=== PATIENT | male | born 1960 | race Caucasian/White ===

== ENCOUNTER 2017-08-03 13:14 | Outpatient (CLI) | payer MEDICARE, MEDICAID ==
--- OUTSIDE RECORDS SUMMARY | 2017-08-03 13:19 | XMS | Clinical Summary ---
:[address] [facility] Address [address] [place] [address] Phone Care Team Providers Name Role Phone , Primary Care Provider Unavailable Allergies Not on File Current Medications Not on file Active Problems Not on file Social History Tobacco Use Types Packs/Day Years Used Date Never Assessed Sex Assigned at Date Recorded Not on file Last Filed Vital Signs Not on file Plan of Treatment Not on file Results Not on filefrom Last 3 Months
--- NOTE | 2017-08-03 13:33 | RAD ---
TWO VIEWS CHEST: Date: 08-03-17 Comparison: 07-08-17 History: Dyspnea. FINDINGS: PA and lateral chest demonstrates hyperaeration and airtrapping compatible with changes of COPD. The re is some ectasia of the aorta. Old healed fractures seen in the left 8th rib anteriorly. IMPRESSION: No acute intrathoracic abnormalities seen. POS: [facility]
== END 2017-08-03 13:15 | disposition home or self-care (01) ==
LOC: RAD 13:14
PROVIDERS: ATTEND Internal Medicine Pulmonary Disease
DX: R06.00 Dyspnea, unspecified (principal)
CPT/HCPCS: 71020

== ENCOUNTER 2018-01-27 06:23 | Emergency (ER) | payer MEDICARE, MEDICAID ==
[2018-01-27] MEDS ORDERED: Adacel (T-DAP) 0.5 ML VIAL ONE (06:44)
[2018-01-27] MEDS ORDERED: Bacitracin Zinc 1 Packet ONE (06:44)
== END 2018-01-27 07:35 | disposition home or self-care (01) ==
LOC: ERS 06:23
DX: S51.811A Laceration without foreign body of right forearm, initial encounter (principal); I10 Essential (primary) hypertension; I69.359 Hemiplegia and hemiparesis following cerebral infarction affecting unspecified side; F31.9 Bipolar disorder, unspecified; Z99.2 Dependence on renal dialysis; Z87.891 Personal history of nicotine dependence; Z79.82 Long term (current) use of aspirin; Z79.891 Long term (current) use of opiate analgesic; Z79.899 Other long term (current) drug therapy; W06.XXXA Fall from bed, initial encounter
CPT/HCPCS: 90471; 90715; 99284

== ENCOUNTER 2018-08-30 06:49 | Day surgery (SDC) | payer MEDICARE, MEDICAID ==
--- NOTE | 2018-08-28 21:40 | HP ---
DATE OF ADMISSION: 08/30/2018 HISTORY OF PRESENT ILLNESS: This is a 57-year-old male referred to me for average weight loss and also occult GI bleeding. The patient has been losing weight progressively. He does eat fairly well, but he has lost 50 pounds over the last year or so. There is no abdominal pain, no nausea, or vomiting. He has history of constipation off and on. At times he has hematochezia. The patient has had stool testing done for occult blood that came back positive. The patient comes for colonoscopy because of bleeding issue. ALLERGIES: CYMBALTA and HALDOL. PAST MEDICAL HISTORY: 1. Chronic kidney disease on dialysis. 2. Depression. 3. Mild cognitive communication deficit. 4. Chronic back pain. 5. Encephalopathy, resolved. 6. Polyneuropathy. 7. Chronic constipation. PHYSICAL EXAMINATION: GENERAL: He is very thin built, very fragile looking male, appears comfortable. VITAL SIGNS: Pulse is 70, blood pressure 120/70. HEENT: Conjunctivae clear. CARDIOVASCULAR: First and second heart sounds normal. LUNGS: Clear to auscultation. ABDOMEN: Soft. Abdomen is nondistended. Abdomen is nontender. There is no organomegaly or masses. Bowel sounds normal. EXTREMITIES: Reveal no edema. ADMITTING DIAGNOSIS: A 57-year-old male with occult gastrointestinal bleeding. PLAN: Colonoscopy. CEZAR
[2018-08-30] MEDS ORDERED: GoLYTELY 4,000 ml Bottle PO SCH (10:15)
[2018-08-30] MEDS ORDERED: Lidocaine 1% PF 5 ML VIAL ONE (11:15)
[2018-08-30] MEDS ORDERED: PHENYLEPHRINE-NS 100 MCG/ML 10 ML SYRINGE ONE (11:15)
[2018-08-30] MEDS ORDERED: ePHEDrine/0.9% NaCl/PF SYRINGE 50 mg/10 ml ONE (11:15)
[2018-08-30] MEDS ORDERED: PROPOFOL 200 MG/20 ML VIAL ONE ×2 (11:15)
[2018-08-30] MEDS ORDERED: Fleet Enema 133 ML BOT PR SCH (16:30)
[2018-08-30] MEDS ORDERED: Fleet Enema 133 ML BOT FS SCH (17:00)
--- NOTE | 2018-08-31 04:59 | OP ---
PROCEDURE PERFORMED: Esophagogastroduodenoscopy. PREPROCEDURE DIAGNOSES: 1. History of anemia. 2. Hemoccult positive stool. Dr. Jimenez scheduled for colonoscopy earlier today, had a poo r prep. He will be rescheduled for this evening. Unfortunately, Dr. Jimenez had to go out of town and asked me to perform the procedure. Preoperatively reviewed the H and P and discussed with the p atient and he is agreeable to have me to perform this procedure. POSTPROCEDURE DIAGNOSES: 1. Diverticulosis colon. 2. A 5 mm polyp in the proximal ascending colon, removed by snare polypectomy. 3. Large 3-4 cm semi sessile polyp just proximal, I think to hepatic flexure, it was not amenable st andard resection and due to the poor prep, tortuous nature of the colon and possible malignant nature , this was biopsied and not removed. If it comes back benign without any feature of high grade dyspl juan a, there may be some option for endoscopic mucosal resection versus laparoscopic surgical resectio n, this decision will be deferred to Dr. Jimenez. 4. Otherwise, normal colonoscopy. ANESTHESIA: TIVA. PROCEDURE IN DETAIL: After the patient was informed of the risks, benefits, and possible complicatio ns of endoscopy including perforation, bleeding, reactions to medication, aspiration, informed consen t was obtained. The patient was brought to the endoscopy suite where he was sedated in a gradual fas hion. Once he was comfortable, a rectal exam was performed which was normal. The endoscope was adva nced into the anal canal through the colon to the cecum. There was some retained stool that was irri gated where we used about 500 mL of sterile water to irrigate the colon. We were able to get a good look and examine. The scope was advanced to the cecum which identified by ileocecal valve and append iceal orifice. The scope was then slowly removed. There was good visualization of the mucosa. A 5 mm polyp was noted just beyond the ileocecal valve removed by snare polypectomy and submitted to path ology. A large mass/polyp about 3-4 cm in size was identified just proximal to the hepatic flexure. This was biopsied. It was soft with no hard features or ulcerated areas. It may be all removed by endoscopic mucosal resection worked a way for pathology on that. It was tattooed just distal to this no other polyps or masses were seen. Retroflexion in the rectum was normal. The scope was re moved. The patient tolerated the procedure well with no complications.
== END 2018-08-30 20:55 | disposition home or self-care (01) ==
LOC: SDC 06:49
PROVIDERS: ATTEND Internal Medicine Gastroenterology
PROC: 0DBL8ZX Excision of Transverse Colon, Via Natural or Artificial Opening Endoscopic, Diagnostic (ICD-10-PCS; principal; 2018-08-30)
PROC: 0DBE8ZX Excision of Large Intestine, Via Natural or Artificial Opening Endoscopic, Diagnostic (ICD-10-PCS; 2018-08-30)
DX: D12.3 Benign neoplasm of transverse colon (principal); D12.6 Benign neoplasm of colon, unspecified; N18.6 End stage renal disease; Z88.8 Allergy status to other drugs, medicaments and biological substances
CPT/HCPCS: 88305; J2001; J2704

== ENCOUNTER 2018-09-06 04:08 | Emergency (ER) | payer MEDICARE, OTHER ==
--- NOTE | 2018-09-06 12:13 | CT ---
PRELIMINARY REPORT/[facility]/EMERGENCY AFTER HOURS PROCEDURE: EXAM: CT Head Without Intravenous Contrast EXAM DATE/TIME: 09/06/2018 4:43 AM CLINICAL HISTORY: 57 years old, male; Injury or trauma; Fall; Initial encounter; Abrasion; Head, generalized; Patient H X: From [place]. Fall from wheelchair. Pain to posterior head. No loc per ems. TECHNIQUE: Axial computed tomography images of the head/brain without intravenous contrast. COMPARISON: No relevant prior studies available. FINDINGS: Brain: There are multiple small hypodensities in the basal ganglia, consistent with remote lacunar in farctions. No acute intracranial hemorrhage. Ventricles: Normal. No ventriculomegaly. Bones/joints: Normal. No acute fracture. Sinuses: Normal as visualized. No acute sinusitis. Mastoid air cells: Normal as visualized. No mastoid effusion. Soft tissues: Normal. IMPRESSION: No acute intracranial hemorrhage. Thank you for allowing us to participate in the care of your patient. Dictated and Authenticated by: Vignesh Min MD 09/06/2018 4:50 AM Central Time ([place] & [place]) FINAL REPORT CT HEAD NONCONTRAST: Date: 09-06-18 Performed on emergency basis at 0444 hours. History: Fall. Head injury. Comparison: 07-08-17 FINDINGS: I agree with the preliminary report by Dr. Min from [facility]. Chronic type findings are s table. No acute intracranial abnormalities are demonstrated. POS: [facility]
== END 2018-09-06 06:33 | disposition home or self-care (01) ==
LOC: ERS 04:08
DX: Z04.3 Encounter for examination and observation following other accident (principal); E78.00 Pure hypercholesterolemia, unspecified; F31.9 Bipolar disorder, unspecified; I10 Essential (primary) hypertension; I71.4 Abdominal aortic aneurysm, without rupture; N28.9 Disorder of kidney and ureter, unspecified; Z99.2 Dependence on renal dialysis; Z86.73 Personal history of transient ischemic attack (TIA), and cerebral infarction without residual deficits; Z87.891 Personal history of nicotine dependence
CPT/HCPCS: 70450

== ENCOUNTER 2018-10-04 09:32 | Day surgery (SDC) | payer MEDICARE, MEDICAID ==
--- NOTE | 2018-10-03 20:44 | HP ---
HISTORY OF PRESENT ILLNESS: This is a 57-year-old male, seen by me because of mild anemia and occult GI bleeding. The patient came for a colonoscopy a month and his prep was very poor. He has been reprepped again. The colonoscopy was performed by Dr. David Perez and he still was not cleaned out very good. He was found to have a very large sessile polyp of the proximal transverse colon. Because of the poor prep, the polyp was not taken out, although biopsy showed no malignancy. The patient brought in today for a colonoscopy and polypectomy. ALLERGIES: CYMBALTA AND HALDOL. MEDICAL ILLNESSES: 1. Chronic renal failure, on dialysis 3 times a week. 2. Depression. 3. Mild cognitive communication deficit. 4. Chronic low back pain. 5. Polyneuropathy. 6. Chronic constipation. PHYSICAL EXAMINATION: VITAL SIGNS: Pulse is 70 and blood pressure 130/70. HEENT: Conjunctivae clear. CARDIOVASCULAR: First and second heart sounds heard. LUNGS: Clear to auscultation. ABDOMEN: Soft. No organomegaly. No tenderness. No masses. ADMITTING DIAGNOSES: Anemia, occult gastrointestinal bleeding, and colon polyp. PLAN: Colonoscopy and polypectomy. Job ID: [id number]
[2018-10-04] MEDS ORDERED: PHENYLEPHRINE-NS 100 MCG/ML 10 ML SYRINGE ONE (16:58)
--- NOTE | 2018-10-06 07:31 | OP ---
DATE OF PROCEDURE: 10/04/2018 OPERATIVE PROCEDURE: Colonoscopy. PREOPERATIVE DIAGNOSES: Occult GI bleeding and anemia. The patient had on colonoscopy on 08/30/2018 and was found to have a large broad-based sessile polyp in the transverse colon. Pathology on malignancy and biopsy came back as adenoma. The patient was brought in today for a repeat colonoscopy and polypectomy. POSTOPERATIVE DIAGNOSES: Incomplete exam due to large amount of retained stool. The exam was done around distal transverse colon. DESCRIPTION OF PROCEDURE: The patient was placed in the left lateral position and was given sedation by Anesthesia Department. A rectal exam was done and scope was advanced in. Compared to the last exam where he had large amount of stool in the rectal vault. At this time, rectum was actually empty. A Pentax video colonoscope was introduced into the rectum and advanced into the sigmoid colon. The patient had large amount of brown stool with what appeared to be . The stool is solid, and difficult to wash out, although I was able to advance the scope into the distal transverse colon and I kept advancing this, and more and more solid stool encountered. To realize challenge to complete the procedure. stool, I elected to stop the procedure. DISCHARGE PLANNING: This is a 57-year-old male, referred to me by Dr. Cooper for an evaluation of anemia and occult GI bleeding. He came in for a colonoscopy on 08/30/2018. At that time, he was not cleaned. He was reprepped again. Dr. Perez on-call for me, he did a colonoscopy and was found a very large sessile polyp of the proximal transverse colon. could be malignant. Because of the above reason, it was not removed at that time. A biopsy did not show any malignancy, . The patient was brought today for colonoscopy to rule out polyp. Unfortunately, he had large amount of solid stool and which could not be really irrigated or washed out. We will plan to discharge the patient back to the residential and plan to bring him in the next few weeks for another attempt of colonoscopy. Job ID: [id number]
== END 2018-10-04 14:01 | disposition home or self-care (01) ==
LOC: SDC 09:32
PROVIDERS: ATTEND Internal Medicine Gastroenterology
PROC: 0DJD8ZZ Inspection of Lower Intestinal Tract, Via Natural or Artificial Opening Endoscopic (ICD-10-PCS; principal; 2018-10-04)
DX: R19.5 Other fecal abnormalities (principal); D64.9 Anemia, unspecified; N18.9 Chronic kidney disease, unspecified; F32.9 Major depressive disorder, single episode, unspecified; G89.29 Other chronic pain; M54.5 Low back pain; K59.09 Other constipation; G62.9 Polyneuropathy, unspecified; Z86.010 Personal history of colon polyps; Z79.82 Long term (current) use of aspirin; Z79.899 Other long term (current) drug therapy; Z88.8 Allergy status to other drugs, medicaments and biological substances; Z91.018 Allergy to other foods; Z99.2 Dependence on renal dialysis

== ENCOUNTER 2018-12-05 04:53 | Emergency (ER) | payer MEDICARE, OTHER ==
--- NOTE | 2018-12-05 08:08 | CT ---
CT BRAIN WITHOUT CONTRAST: History: History of fall. Comparison: 09-06-18 FINDINGS: No acute infarct, hemorrhage, or hydrocephalus is evident. Bilateral basal ganglia lacunar infarct is similar. Mild chronic small vessel white matter ischemic change is again noted. Skull and extracrani al soft tissues appear within normal limits. IMPRESSION: No acute intracranial abnormality. POS: [facility]
== END 2018-12-05 06:04 ==
LOC: ERS 04:53
DX: S09.90XA Unspecified injury of head, initial encounter (principal); S51.012A Laceration without foreign body of left elbow, initial encounter; I10 Essential (primary) hypertension; Z86.73 Personal history of transient ischemic attack (TIA), and cerebral infarction without residual deficits; I72.9 Aneurysm of unspecified site; F31.9 Bipolar disorder, unspecified; Z87.891 Personal history of nicotine dependence; Z79.899 Other long term (current) drug therapy; Z79.82 Long term (current) use of aspirin; Z79.01 Long term (current) use of anticoagulants; W01.198A Fall on same level from slipping, tripping and stumbling with subsequent striking against other object, initial encounter
CPT/HCPCS: 70450

== ENCOUNTER 2018-12-23 10:48 | Inpatient (IN) | payer MEDICARE, MEDICAID ==
[2018-12-23 11:21] LABS: #Eosinphils 0.4 thou/uL (0.0-0.7); #Lymphocytes 0.8 thou/uL (1.20-3.40); #Monocytes 0.8 thou/uL (0.11-0.59); #Neutrophils 6.9 thou/uL (1.40-6.50); %Basophils 0.5 % (0.0-1.0); %Eosinophils 4.5 % (0.0-10.0); %Lymphocytes 9.2 % (21.0-51.0); %Neutrophils 76.8 % (42.0-75.0); Hemoglobin 7.8 g/dL (14.0-18.0); Mean Corpuscular HGB CONC 33.1 g/dL (32.0-36.0); Mean Corpuscular Hemoglobin 32.5 pg (27.0-31.0); Mean Corpuscular Volume 98.1 fL (78.0-98.0); Mean Platelet Volume 6.4 fL (7.4-10.4); Platelet Count 154 thou/uL (130-400); RBC Distribution Width 13.8 % (11.5-14.5)
[2018-12-23 11:34] LABS: Prothrombin Time 13.7 SEC (12.0-14.7)
[2018-12-23 11:48] LABS: ALT (SGPT) 28 U/L (8-55); AST (SGOT) 28 U/L (5-34); Albumin 3.4 g/dL (3.5-5.0); Alkaline Phosphatase 90 U/L (40-150); Anion Gap 15 mmol/L (10-20); BUN (Urea Nitrogen) 22 mg/dL (8.4-25.7); Bilirubin, Total 0.3 mg/dL (0.2-1.2); Calc. Creatinine Clearance 0 mL/min (70-130); Calcium 8.8 mg/dL (7.8-10.44); Carbon Dioxide 33 mmol/L (22-29); Chloride 96 mmol/L (98-107); Estimated GFR-MDRD 24; Globulin 2.8 g/dL (2.4-3.5); Glucose 87 mg/dL (70-105); Potassium 3.9 mmol/L (3.5-5.1); Protein, Total 6.2 g/dL (6.0-8.3); Sodium 140 mmol/L (136-145)
[2018-12-23] MEDS ORDERED: Pantoprazole 40 MG VIAL ONE ×2 (11:49→11:50)
[2018-12-23] MEDS ORDERED: cefTRIAXone\\ROCEPHIN 1 GM VIAL ONE (11:49)
[2018-12-23] MEDS ORDERED: Tranexamic Acid 1,000 MG/10 ML VIAL ONE (11:49)
[2018-12-23] MEDS ORDERED: Acetaminophen 325 MG TAB PO PRN (12:36)
[2018-12-23] MEDS ORDERED: Acetaminophen 650 MG Suppository PR PRN (12:36)
[2018-12-23] MEDS ORDERED: Ondansetron PF 4 MG/2 ML Vial IVP PRN (12:36)
[2018-12-23] MEDS ORDERED: PROVENTIL INHALER 6.7 G (200 INHALATIONS) INH PRN (12:36)
[2018-12-23 13:19] LABS: Hemoglobin 9.3 g/dL (14.0-18.0)
--- NOTE | 2018-12-23 13:33 | HP ---
REASON FOR ADMISSION: Rectal bleed, hemorrhagic shock. HISTORY OF PRESENTING ILLNESS: The patient gives history of having the 1st episode of bleeding yesterday in the afternoon. He had hemodialysis and then the patient had another episode of harshad bleeding. The patient states a total of three more episodes happened overnight. He was finally transferred here from [facility] for ongoing bleed. On arrival, the patient had systolic blood pressures in the 90s to 100 systolic, but then dropped down to 70s and a massive transfusion protocol was initiated by ER physician. He currently complains of mild shortness of breath. Has mild dyscomfort in his abdomen, but no specific pain as such. No complaints of chest pain or palpitation. The patient had a colonoscopy done on the by Dr. Jimenez. The patient had removal of a large polyp. His prior colonoscopy in July of 2018 revealed diverticulosis and had a 5 cm polyp in the proximal colon, which was removed by polypectomy. A large 3-4 cm semi sessile polyp just proximal to the hepatic flexure was not amenable for standard resection due to poor prep. The colon was tortuous then. This particular sessile polyp at the hepatic flexure was biopsied and the results of the histopathology showed tubular adenoma. PAST MEDICAL AND SURGICAL HISTORY: History of end-stage renal disease, on hemodialysis; has had a tubular adenoma with colonoscopy done in July and a repeat one done five days back; hypertension; history of mild cognitive disorder ; polyneuropathy; depression; prior history of pneumothorax requiring chest tube; GERD; anemia due to renal disease; history of CVA with residual weakness; history of aortobifemoral bypass graft; hip replacement in 2008 on the left side; dialysis access procedures in the left upper extremity; prior history of cardiac cath with a stent placement; bipolar disorder; and schizoaffective disorder. PERSONAL HISTORY: Quit smoking more than two years ago. Does not abuse alcohol or drugs. He is a resident at [facility]. The patient states he mobilizes himself to get into a wheelchair. FAMILY HISTORY: Mother at the age of 62 years. She has had history of colon and lung cancer. She was not a smoker. Father at the age of 87 years. Code status is full. Power of regulatory attorney is his brother, Mr. Ralph Bauer. ALLERGIES: ALLERGIC TO HALDOL AND CYMBALTA. CURRENT MEDICATIONS: Per penitentiary records, the patient is on: 1. Ultram 50 mg q.4 hourly p.r.n. 2. DuoNeb three times daily p.r.n. 3. Linaclotide 290 mg daily. 4. MiraLAX 17 g daily. 5. Clonazepam 0.5 mg three times daily. 6. Clozapine 100 mg p.o. daily for bipolar disorder. 7. Lexapro 10 mg p.o. daily. 8. Aspirin 81 mg p.o. daily. 9. Vitamin D3 2000 units p.o. daily. 10. Abilify 30 mg p.o. daily. 11. Benztropine 0.5 mg p.o. daily. 12. Crestor 20 mg p.o. daily. 13. Protonix 40 mg p.o. daily. 14. Alpha lipoic acid 200 mg p.o. daily. 15. Gabapentin 300 mg p.o. three times daily. 16. Renvela 1600 mg p.o. three times daily. 17. Midodrine 10 mg twice daily p.r.n. for low blood pressures. REVIEW OF SYSTEMS: CONSTITUTIONAL: Negative for weight loss or gain, ability to conduct usual activities. SKIN: Negative for rash, itching. EYES: Negative for double vision, pain. ENT/MOUTH: Negative for nose bleeding, neck stiffness, pain, tenderness. CARDIOVASCULAR: Negative for palpitations, dyspnea on exertion, orthopnea. RESPIRATORY: Negative for shortness of breath, wheezing, cough, hemoptysis, fever or night sweats. GASTROINTESTINAL: Negative for poor appetite, abdominal pain, heartburn, nausea , vomiting, constipation, or diarrhea. GENITOURINARY: Negative for urgency, frequency, dysuria, nocturia. MUSCULOSKELETAL: Negative for pain, swelling. NEUROLOGIC/PSYCHIATRIC: Negative for anxiety, depression. ALLERGY/IMMUNOLOGIC: Negative for skin rash, bleeding tendency. PHYSICAL EXAMINATION: GENERAL: The patient is a 57-year-old male, who is currently not in any acute distress. He is on a massive transfusion protocol at present. The 3rd unit of packed cell is running. VITAL SIGNS: Blood pressure currently 110/76, pulse 84 per minute, respiratory rate 16 per minute, temperature 98.3 degrees Fahrenheit, saturating 99% on room air. NECK: Supple. No elevated JVD. HEENT: Eyes; extraocular muscles intact. Pupils reacting to light. Oral cavity, mucous membranes are moist. No exudates or congestion. CARDIOVASCULAR SYSTEM: S1 and S2 heard. Regular rhythm. RESPIRATORY SYSTEM: Air entry 1+ bilateral. Scattered rhonchi plus. No rales. ABDOMEN: Soft. Bowel sounds heard. No tenderness, rigidity, or guarding. EXTREMITIES: No peripheral edema or calf tenderness. VASCULAR SYSTEM: Peripheral pulses 1+ bilateral. No ischemic ulcerations or gangrene. CENTRAL NERVOUS SYSTEM: No gross focal deficits noted at present. He moves all four extremities. A thorough neurologic exam could not be completed due to the patient receiving massive transfusion protocol at present. PSYCHIATRIC SYSTEM: The patient's mood is euthymic. No obvious hallucinations or delusions. LABORATORY DATA: White count of 9, H and H of 8 and 23, platelet count is 154 with 76% neutrophils. PT, INR, PTT within normal limits. Serum bicarb 33, BUN 22, creatinine 2.7, albumin is 3.4. His CT angio of the abdomen and pelvis done shows no evidence of aortoenteric fistula. Official report is pending. CLINICAL IMPRESSION AND PLAN: The patient will be admitted to ICU for hemorrhagic shock with likely post polypectomy bleed. He had removal of a large polyp per Dr. Jimenez whom I discussed the patient's findings. Once the massive transfusion protocol is done, the patient will go for endoscopy. His prep was poor during his last two colonoscopies, once in July and another one done 5 days back. He will be on H and H q.6 hourly. We will continue his psychiatric medications including Abilify, Cogentin, Klonopin and clozapine. I have discussed these findings with Dr. Edmond and Dr. Rocha for critical care and nephrology respectively. Job ID: [id number] [facility]
--- NOTE | 2018-12-23 13:37 | CON ---
DATE OF CONSULTATION: 12/22/2018 CONSULTING PHYSICIAN: Dr. Rojo. REASON FOR CONSULTATION: CCU care. HISTORY OF PRESENT ILLNESS: Mr. Bauer is pleasant 57-year-old [facility] patient who is in the emergency room today with hematochezia. He had a colonoscopy about four days ago. He has been experiencing rectal bleeding. Today, he received several units of blood this morning. He now has a stable blood pressure. He complains of some mild abdominal pain. PAST MEDICAL HISTORY: 1. End-stage renal disease requiring hemodialysis. 2. Hyperlipidemia. 3. Hypertension. 4. Stroke. 5. Peripheral vascular disease. PAST SURGICAL HISTORY: 1. AAA repair. 2. Left hip replacement. 3. Left forearm shunt for dialysis. ALLERGIES: DULOXETINE, HALOPERIDOL. SOCIAL HISTORY: Does not smoke. Does not consume alcohol. Does not use illicit drugs. MEDICATIONS: Prior to admission, Ultram 50 mg every 4 hours as needed for pain, milk of magnesia as needed, guaifenesin DM as needed, Zofran as needed, simethicone as needed, diphenhydramine as needed, ipratropium/albuterol as needed for shortness of breath, Lexapro 10 mg daily, Clozaril 100 mg daily, clonazepam 0.5 mg 3 times daily. MiraLAX 17 g three times weekly. REVIEW OF SYSTEMS: A 12-point review of system otherwise negative. PHYSICAL EXAMINATION: VITAL SIGNS: O2 saturation 98%, blood pressure 135/76, respiratory rate 14, pulse 73. GENERAL: He is awake, alert, currently in no distress. HEENT: Pupils reactive. Sclerae anicteric. Oropharynx is clear. NECK: No adenopathy, JVD, or bruits. LUNGS: Clear to auscultation without wheezing or rhonchi. ABDOMEN: Soft, nontender to deep palpation. EXTREMITIES: No clubbing, cyanosis, or edema. Left arm dialysis shunt is noted. LABORATORY DATA: White count is 9, hematocrit 23.5, and platelet count 154. INR 1.0. Sodium 140, potassium 3.9, chloride 96, CO2 of 33, BUN 22, creatinine 2.7, glucose 87. ASSESSMENT: 1. Hematochezia, likely from recent polypectomy. 2. Anemia due to blood loss. 3. End-stage renal disease requiring hemodialysis. PLAN: 1. GI has been consulted to evaluate hematochezia. 2. He has received blood and is currently hemodynamically stable. 3. He will receive dialysis. 4. I have reviewed the orders in the chart. Agree with the management as dictated by Dr. Rojo. I will be happy to follow with you while he is in the ICU. Job ID: [id number]
--- NOTE | 2018-12-23 14:02 | CT ---
CT ANGIOGRAM OF THE ABDOMEN AND PELVIS: DATE: 12/23/2018. COMPARISON: 07/08/2017. HISTORY: GI bleeding, bloody diarrhea. TECHNIQUE: Axial CT imaging obtained at 2.5 mm intervals from the lung bases through pubic symphysis with IV con trast using a CT angiogram protocol. Coronal and sagittal 3D reformatted imaging obtained. FINDINGS: There are emphysematous changes noted within both lung bases with increased linear interstitial densi ty, most prominent within bilateral lower lobes. The thoracic aorta is only partially imaged on this examination. The descending thoracic aorta just proximal to the thoracic inlet is aneurysmal, measuring up to at least 4.6 cm in AP dimension. This appears similar when compared to a prior study performed 02/19/2017. Unfortunately, the thoracic aort a is not well evaluated on this examination. The distalmost aspect of the descending thoracic aorta on axial image 19 demonstrates mural thickening, similar when compared to 07/08/2017 exam. The liver is not optimally assessed on arterial phase imaging and appears unremarkable as does the sp lukas. The pancreas and adrenal glands are unremarkable. There is cholelithiasis. Kidneys are small and demonstrate cortical thinning bilaterally. Small bilateral renal cysts are aga in noted. There is a hip arthroplasty on the left with associated streak artifact limiting assessment of the pe lvis. The rectum is mildly distended, less so than on prior imaging. Limited assessment of the bowel witho ut oral contrast demonstrates no evidence for obstruction. Of note, there is a focal area of wall th ickening involving the ascending colon proximally with mild pericolonic fat stranding. This is best seen on axial image 102 and coronal image 75. This appears new when compared to prior imaging. This involves a segment of the ascending colon measuring approximately 9 cm in craniocaudal length. There is extensive multifocal aneurysmal dilatation of the abdominal aorta, as seen on prior imaging. The celiac axis is patent and demonstrates proximal stenosis, similar when compared to prior imagin g. The abdominal aorta at the level of the origin of the celiac axis measures approximately 3.3 x 3. 6 cm. There is a focal area of mild stenosis involving the proximal aspect of the superior mesenteri c artery. The SMA appears patent otherwise. The abdominal aorta at the level of the SMA origin blank ures approximately 3.5 x 3.4 cm. The inferior mesenteric artery is not visualized, likely occluded. Distal abdominal aorta is aneurysmal, just proximal to the bifurcation measuring at least 3.5 cm in g reatest AP dimension, similar when compared to prior imaging. Bilateral common iliac arteries are pa tent. Bilateral external iliac arteries and common femoral arteries are patent. Bilateral internal iliac arteries appear occluded, a stable finding. The patient is status post surgical correction of distal abdominal aorta. Common iliac artery grafts are present with occluded ak chin aneurysmal commo n iliac arteries, a stable finding. No lymphadenopathy is evidence in the abdomen or pelvis. Review of the osseous structures demonstrat es prominent lumbar spine degenerative change, most prominent at L2-3. No worrisome lytic or blastic bone lesion. The renal artery on the right appears occluded as before. The left renal artery appears markedly stenotic on axial image 67. IMPRESSION: 1. 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 2. Focal area of colonic wall thickening and pericolonic fat stranding in the region of the cecum/pr oximal ascending colon. In this clinical setting, this is suspicious for ischemic colitis. An infla mmatory/infectious colitis is a possibility. Clinical correlation is essential. CODE T POS: [facility]
--- NOTE | 2018-12-23 15:12 | CON ---
DATE OF CONSULTATION: 12/23/2018 CONSULTING PHYSICIAN: Dr. Rojo. REASON FOR CONSULTATION: End-stage renal disease evaluation. REASON FOR ADMISSION: GI evaluation. HISTORY OF PRESENT ILLNESS: This is a 57-year-old white male with history of end-stage renal disease, AAA, depression, rule out anemia, hypertension, and peripheral vascular disease, came to the hospital with above complaint and he had dialysis this morning, but Nephrology is consulted for maintenance of hemodialysis. He had routes of blood products including 3 units of PRBC and 3 units of plasma. The patient was seen in ICU and he is breathing okay, no hypoxia, not on any oxygen. No shortness of breath. No chest pain. No nausea or vomiting. He is having mild abdominal pain. PAST MEDICAL HISTORY: Positive for end-stage renal disease, anemia, hypertension, GI bleed, depression, pneumothorax, CVA, and peripheral vascular disease. PAST SURGICAL HISTORY: Dialysis access placement and cardiac stent placement. HOME MEDICATIONS: Include: 1. Ultram. 2. DuoNeb. 3. MiraLAX. 4. Clonazepam. 5. Clozapine. 6. Aspirin. 7. Abilify. 8. Benztropine. 9. Crestor. 10. Protonix. 11. Gabapentin. 12. Renvela. 13. Midodrine. ALLERGIES: DULOXETINE AND HALOPERIDOL. SOCIAL HISTORY: No smoking, alcohol, or illicit drug abuse. FAMILY HISTORY: No history of any kidney disease. REVIEW OF SYSTEMS: CONSTITUTIONAL: Negative for weight loss or gain, ability to conduct usual activities. SKIN: Negative for rash, itching. EYES: Negative for double vision, pain. ENT/MOUTH: Negative for nose bleeding, neck stiffness, pain, tenderness. CARDIOVASCULAR: Negative for palpitations, dyspnea on exertion, orthopnea. RESPIRATORY: Negative for shortness of breath, wheezing, cough, hemoptysis, fever or night sweats. GASTROINTESTINAL: Negative for poor appetite, abdominal pain, heartburn, nausea, vomiting, constipation, or diarrhea. GENITOURINARY: Negative for urgency, frequency, dysuria, nocturia. MUSCULOSKELETAL: Negative for pain, swelling. NEUROLOGIC/PSYCHIATRIC: Negative for anxiety, depression. ALLERGY/IMMUNOLOGIC: Negative for skin rash, bleeding tendency. PHYSICAL EXAMINATION: GENERAL: This is a well-built male, in no apparent distress. VITAL SIGNS: Temperature 98.3, heart rate 84, respiratory rate 18, and blood pressure 120/84. HEENT: Atraumatic and normocephalic. Oral mucosa is moist. NECK: Supple. CVS: S1 and S2 heard. Regular rate and rhythm. RESPIRATORY: Clear. GASTROINTESTINAL: Abdomen is soft. MUSCULOSKELETAL: 1+ edema. DERMATOLOGIC: No skin rash. NEUROLOGIC: Alert and awake. PSYCHIATRIC: Mood and affect normal. LABORATORY DATA: Hemoglobin was 7.8, up to 9.3 after transfusion. INR 1.0. Potassium 3.9, BUN 22, and creatinine is 2.7. ASSESSMENT: 1. End-stage renal disease, on hemodialysis status post dialysis today. 2. Edema, controlled. 3. Hypertension, stable. 4. Anemia, status post transfusion. The patient is not hypoxic. No shortness of breath. PLAN: Plan is to monitor closely. No acute indication for repeat dialysis today. We will continue to monitor closely. Follow with GI for anemia. Thank you for the consult. We will follow. Job ID: [id number]
[2018-12-23] MEDS: clonazePAM 0.5 MG TAB PO SCH ×2 (15:32→21:49)
[2018-12-23] MEDS ORDERED: ISOVUE-370 76%-LOCM 1 ML ONE (16:49)
[2018-12-23] MEDS: Sevelamer Carbonate 800 MG TAB PO SCH (18:13)
[2018-12-23] MEDS: GoLYTELY 4,000 ml Bottle PO SCH (18:13)
[2018-12-23] MEDS: Pantoprazole 80 MG, Admixture Fee 1 EACH in Sodium Chloride 0.9% 100 ML IVPB SCH (19:14)
[2018-12-23 20:03] LABS: Hemoglobin 8.6 g/dL (14.0-18.0)
[2018-12-23] MEDS: Rosuvastatin 20 MG TAB PO SCH (21:48)
[2018-12-23] MEDS: Aripiprazole 15 MG TAB PO SCH (21:48)
[2018-12-23] MEDS ORDERED: Zolpidem Tartrate 5 MG TAB PO SCH (23:30)
[2018-12-24 00:47] LABS: Hemoglobin 7.6 g/dL (14.0-18.0)
[2018-12-24 05:39] LABS: Hemoglobin 7.8 g/dL (14.0-18.0)
[2018-12-24 06:02] LABS: ALT (SGPT) 29 U/L (8-55); AST (SGOT) 27 U/L (5-34); Alkaline Phosphatase 74 U/L (40-150); Anion Gap 15 mmol/L (10-20); BUN (Urea Nitrogen) 29 mg/dL (8.4-25.7); Bilirubin, Total 0.3 mg/dL (0.2-1.2); Calc. Creatinine Clearance 21 mL/min (70-130); Calcium 8.3 mg/dL (7.8-10.44); Carbon Dioxide 31 mmol/L (22-29); Chloride 97 mmol/L (98-107); Estimated GFR-MDRD 16; Globulin 2.4 g/dL (2.4-3.5); Glucose 96 mg/dL (70-105); Potassium 4.1 mmol/L (3.5-5.1); Protein, Total 5.4 g/dL (6.0-8.3); Sodium 139 mmol/L (136-145)
[2018-12-24] MEDS: GoLYTELY 4,000 ml Bottle PO SCH (06:05)
[2018-12-24] MEDS: Sevelamer Carbonate 800 MG TAB PO SCH ×3 (08:24→17:36)
[2018-12-24] MEDS: clonazePAM 0.5 MG TAB PO SCH ×3 (08:26→20:19)
--- NOTE | 2018-12-24 08:31 | PRG ---
DATE OF SERVICE: 12/24/2018 SUBJECTIVE: The patient is seen and examined at the bedside. He is in ICU bed 4. He is feeling better, but his blood pressure is running on the lower side, and he had active rectal bleeding last night. He is getting prepped for colonoscopy this morning. OBJECTIVE: VITAL SIGNS: Blood pressure is 89/64, pulse is 93, respiratory rate is 13, O2 saturation is 98%. HEENT: His head is atraumatic and normocephalic. Eyes, PERRLA. Sclerae are nonicteric. Conjunctivae are pale. Oral mucosa is moist. NECK: Supple. LUNGS: Clear. HEART: S1, S2 normal. No S3. No S4. No any murmur. ABDOMEN: Soft and nontender. Bowel sounds are present. No organomegaly. EXTREMITIES: No clubbing, cyanosis. NEUROLOGIC: He follows my commands. There is no any motor or sensory deficits present. Cranial nerves are intact. LABORATORY DATA: Hemoglobin 7.8 at 5:27, it was 7.6 at midnight, and 8.6 at 1949 hours yesterday. Sodium 139, potassium 4.1, chloride 97, CO2 of 31, BUN 29, creatinine 3.95. IMPRESSION: 1. Active rectal bleeding status post 3 units of packed red blood cells and 3 units of plasma. He is getting prepped for colonoscopy this morning. 2. Hypotension secondary to gastrointestinal bleed. We will give him a bolus of normal saline 250 mL/hour now, although his MAP is 72 and he is not tachycardic. 3. Anemia secondary to blood loss, but there is a baseline chronic anemia. 4. Chronic renal failure, on hemodialysis. The patient was dialyzed yesterday. Dr. Rocha is following. 5. Hypertension per history. 6. History of stroke. 7. Peripheral vascular disease. 8. Hyperlipidemia. PLAN: Colonoscopy this morning. Normal saline 250 mL x1 IV bolus, and continue his current regimen with Abilify, clonazepam, Lexapro, Crestor, and Renvela. Job ID: [id number]
--- NOTE | 2018-12-24 09:24 | PRG ---
DATE OF SERVICE: 12/24/2018 SUBJECTIVE: He continues to have hematochezia. He is having colonoscopy later this morning. He received a total of 3 units of blood yesterday. He is having some mild shortness of breath. OBJECTIVE: VITAL SIGNS: Temperature 98.4, pulse 92, respirations 28, and blood pressure 94/54. 24-hour intake 3448, output 155 plus whatever was taken out by dialysis. HEENT: Unremarkable. NECK: No JVD. LUNGS: Clear to auscultation without wheezing or rhonchi. CARDIAC: S1 and S2, regular. ABDOMEN: Soft and nontender. EXTREMITIES: No edema. LABORATORY DATA: Sodium 139, potassium 4.1, BUN 29, creatinine 3.9, and glucose 96. White blood cell count 9, hematocrit 23.3, and platelet count 154. ASSESSMENT: 1. Lower gastrointestinal bleeding. 2. Chronic renal failure. 3. Anemia due to blood loss. PLAN: At this point, we are awaiting colonoscopy and further disposition from GI. He is stable from a pulmonary standpoint. We will continue to follow him in the CCU. Job ID: [id number]
[2018-12-24] MEDS ORDERED: PROPOFOL 200 MG/20 ML VIAL ONE (13:25)
[2018-12-24] MEDS: Benztropine 1 MG TAB PO SCH (14:12)
[2018-12-24] MEDS: Escitalopram Oxalate 10 mg Tablet PO SCH (14:12)
[2018-12-24] MEDS: Pantoprazole 80 MG, Admixture Fee 1 EACH in Sodium Chloride 0.9% 100 ML IVPB SCH (15:52)
--- NOTE | 2018-12-24 16:45 | PRG ---
DATE OF SERVICE: 12/24/2018 SUBJECTIVE: Patient was seen and examined at bedside and overnight events noted. Patient denies any shortness of breath or chest pain or palpitation. No history of nausea or vomiting or diarrhea or fever or chills or cramps. OBJECTIVE: GENERAL: This is a well-built male in no apparent distress. VITAL SIGNS: Temperature 98.3. Heart rate 81. Respiratory rate 14. Blood pressure 143/78. HEENT: Atraumatic, normocephalic. Oral mucosa is moist NECK: Supple. CARDIOVASCULAR: S1, S2 heard. Rate and rhythm regular. RESPIRATORY: Clear to auscultation. GASTROINTESTINAL: Abdomen is soft. MUSCULOSKELETAL: No tenderness. No edema. DERMATOLOGIC: No skin rash. NEUROLOGIC: Alert and awake and oriented X3. No focal neurologic deficits. Moving all the extremities. PSYCHIATRIC: Mood and affect normal. LABORATORY DATA: Potassium is 4.1, BUN is 29, creatinine is 3.9. Hemoglobin is 7.8. ASSESSMENT AND PLAN: 1. End-stage renal disease. Continue hemodialysis. Plan is to have an extra session of dialysis today for fluid removal for 2 to 3 hours. 2. Edema, controlled. 3. Hypertension. 4. Anemia, status post transfusion and follow up with GI. Plan is to have dialysis for fluid removal today for 2 to 3 hours and limit fluid intake and will follow. Thank you for the consult. Job ID: [id number]
[2018-12-24 17:34] LABS: Eosinophils 5 % (0-10); Hemoglobin 8.4 g/dL (14.0-18.0); Lymphocytes 5 % (21-51); MDiff Complete? YES; Mean Corpuscular HGB CONC 34.3 g/dL (32.0-36.0); Mean Corpuscular Hemoglobin 31.7 pg (27.0-31.0); Mean Corpuscular Volume 92.4 fL (78.0-98.0); Mean Platelet Volume 7.1 fL (7.4-10.4); Monocytes 9 % (0-10); Neutrophil 78 % (42-75); Platelet Count 115 thou/uL (130-400); Platelet Morphology Comment Appears Decreased; Polychromasia SLIGHT = 2-3 cells (100X) (0-2/hpf); RBC Distribution Width 13.5 % (11.5-14.5); Reactive Lymphocytes 1 % (0-10); Red Blood Cell (RBC) Count 2.64 mill/uL (4.70-6.10); White Blood Cell (WBC) Count 13.4 thou/uL (4.8-10.8)
[2018-12-24] MEDS: CLOZAPINE 100 MG PO SCH (20:18)
[2018-12-24] MEDS: Rosuvastatin 20 MG TAB PO SCH (20:19)
[2018-12-24] MEDS: Aripiprazole 15 MG TAB PO SCH (20:19)
[2018-12-25] MEDS: Pantoprazole 80 MG, Admixture Fee 1 EACH in Sodium Chloride 0.9% 100 ML IVPB SCH (01:14)
[2018-12-25 05:08] VITALS: BMI 21.4
[2018-12-25 06:33] LABS: #Basophils 0.1 thou/uL (0.0-0.2); #Eosinphils 1.3 thou/uL (0.0-0.7); #Lymphocytes 1.2 thou/uL (1.20-3.40); #Monocytes 1.3 thou/uL (0.11-0.59); %Basophils 0.4 % (0.0-1.0); %Eosinophils 10.1 % (0.0-10.0); %Lymphocytes 9.6 % (21.0-51.0); %Monocytes 9.8 % (0.0-10.0); %Neutrophils 70.2 % (42.0-75.0); Hemoglobin 8.4 g/dL (14.0-18.0); Mean Corpuscular HGB CONC 33.6 g/dL (32.0-36.0); Mean Corpuscular Volume 95.2 fL (78.0-98.0); Mean Platelet Volume 7.3 fL (7.4-10.4); Platelet Count 120 thou/uL (130-400); RBC Distribution Width 13.6 % (11.5-14.5); Red Blood Cell (RBC) Count 2.64 mill/uL (4.70-6.10); White Blood Cell (WBC) Count 12.8 thou/uL (4.8-10.8)
[2018-12-25 06:43] LABS: Anion Gap 16 mmol/L (10-20); BUN (Urea Nitrogen) 24 mg/dL (8.4-25.7); Calc. Creatinine Clearance 18 mL/min (70-130); Carbon Dioxide 30 mmol/L (22-29); Chloride 98 mmol/L (98-107); Estimated GFR-MDRD 13; Glucose 82 mg/dL (70-105); Potassium 4.1 mmol/L (3.5-5.1); Sodium 140 mmol/L (136-145)
--- NOTE | 2018-12-25 07:29 | CON ---
DATE OF CONSULTATION: 12/23/2018 OTHER REFERRING DOCTOR: Fany Rojo MD. REASON FOR CONSULTATION: GI bleeding, hypotension. HISTORY OF PRESENT ILLNESS: Bobby Bauer is a very pleasant 57-year-old male known to me from before. The patient was referred to me by Dr. Burger in July of 2018 for evaluation of anemia, occult GI bleeding. The patient came for a colonoscopy in this hospital in July, August, and also in September 2018. The patient has a history of chronic constipation. It was very difficult to clean him out. It was kept on the day of surgery in August 2018 and had another bowel prep done. The colonoscopy was performed. Dr. David Perez was on-call for me at that time. The colonoscopy showed a very large sessile polyp at the hepatic flexure area, which was tattooed. Initially, it was felt it could be malignant and biopsy showed adenoma. The patient came back for a repeat colonoscopy and polypectomy in September 2018. Again, we encountered a large number of stool and it was already cleaned. The patient came back for a repeat colonoscopy on 12/18/2018. The colonoscopy was found to have sigmoid diverticular disease and a very large broad-based sessile polyp at the hepatic flexure. The polyp was removed completely. The patient had no bleeding after the procedure. He was kept overnight for observation at the [facility]. He had no abdominal pain, no bleeding. He was sent back to [facility] on Tuesday after he had dialysis. The patient was doing well until morning when he was passing some blood in the stool. The bleeding was likely mild. He had CBC done on and blood count was actually stable. The hemoglobin was 9.4, hematocrit 28.9. I checked with the [facility] yesterday morning and they told him that he has no more bleeding. The patient actually went for dialysis. When he came back from dialysis, he started passing large number of blood clots and bleeding. He was deemed hypotensive. The ambulance was called and he was transferred to the ER. back to the [facility]. He was given 3 units of packed RBCs and also 3 units of plasma. On arrival, his blood pressure was 70 systolic. After transfusion, blood pressure is stable. When I saw him around 12 noon, his blood pressure was systolic 134, diastolic 69. His pulse was 75. He was awake, alert, and communicative. Denied abdominal pain. No nausea. No vomiting. The patient had been in the hospital for management of post polypectomy bleeding. SOCIAL HISTORY: The patient is a [facility] resident. He does not smoke or drink alcohol. He is disabled. MEDICAL ILLNESS: 1. Bipolar disorder. 2. Hypertension. 3. Peripheral vascular disease, status post stent placement in both legs. 4. Aortic aneurysm repair. 5. Schizoaffective disorder. 6. Prior CVA with residual right-sided weakness. 7. Chronic kidney disease, on dialysis. 8. COPD. 9. Coronary artery disease. 10. Vitamin D deficiency. 11. Colon polyps. 12. Diverticular disease. 13. He has had a pneumothorax in 2016 and has had a chest tube placement. 14. He also had pneumonia in the past. PAST SURGICAL HISTORY: 1. Total hip replacement. 2. Left side and right femoral artery stent placement. 3. Rotator cuff repair. 4. Dialysis access placement. 5. AAA repair. ALLERGIES: HALDOL. FAMILY HISTORY: Sister, breast cancer. Mother, colon cancer. MEDICATIONS: List reviewed, which includes a long list of medicines. REVIEW OF SYSTEMS: A 10-point system review basically remarkable for hematochezia and feeling faint this morning. No abdominal pain. No nausea. No vomiting. No chest pain. No difficulty breathing. PHYSICAL EXAMINATION: GENERAL: He appears very comfortable. He is awake, alert, oriented to time, place, and person. VITAL SIGNS: He is afebrile. His pulse is 75, blood pressure is 134/68. HEENT: Conjunctivae clear. NECK: Supple. No adenitis or thyromegaly noted. CARDIOVASCULAR SYSTEM: First and second heart sounds heard. LUNGS: Clear to auscultation. ABDOMEN: Soft. No organomegaly. No tenderness. No masses. EXTREMITIES: Reveal no edema. LABORATORY DATA: WBC 9000, hemoglobin 7.8, hematocrit 23.5, platelet count 154,000. CLINICAL IMPRESSION: bleeding. He had a very large, broad-based sessile polyp removed this past 12/18/2018. The polyp was a serrated adenoma. . The patient comes with rectal bleeding and hypotension. Based on the history, I believe he most likely has old polyp bleeding. RECOMMENDATIONS: 1. Admit to ICU. 2. Serial H and H. 3. Clear liquid diet. 4. Plan repeat colonoscopy and possibly cauterization of the polypectomy site or possibly injection. Job ID: [id number]
[2018-12-25] MEDS: clonazePAM 0.5 MG TAB PO SCH ×3 (08:31→20:47)
[2018-12-25] MEDS: Sevelamer Carbonate 800 MG TAB PO SCH ×3 (08:32→16:43)
[2018-12-25] MEDS: Escitalopram Oxalate 10 mg Tablet PO SCH (08:32)
[2018-12-25] MEDS: Benztropine 1 MG TAB PO SCH (08:32)
--- NOTE | 2018-12-25 08:53 | PRG ---
DATE OF SERVICE: 12/25/2018 SUBJECTIVE: The patient is doing well, has no acute complaints. OBJECTIVE: VITAL SIGNS: Temperature is 98.4, pulse , blood pressure 107/70, O2 saturation 94% on room air. HEENT: Unremarkable. NECK: No JVD. LUNGS: Clear. Cardiac S1, S2. Regular. ABDOMEN: Soft. EXTREMITIES: No edema. LABORATORY DATA: Sodium 140, potassium 4.1, chloride 98, CO2 of 30, BUN 24, creatinine 4.5, glucose 82. White blood cell count 12.8, hematocrit 25.1, and platelet count 120. ASSESSMENT: Lower gastrointestinal bleeding site with previous polypectomy. This was apparently cauterized yesterday. He has been hemodynamically stable since that time. PLAN: He can be transferred to the medical floor. No further pulmonary issues. We will follow peripherally. Job ID: [id number]
--- NOTE | 2018-12-25 10:44 | OP ---
DATE OF PROCEDURE: 12/24/2018 OPERATIVE PROCEDURES: 1. Colonoscopy with injection of 1:10,000 epinephrine. 2. Colonoscopy with hemoclip placement. PREOPERATIVE DIAGNOSES: A 57-year-old male, who had a colonoscopy and polypectomy done seven days ago. He had a very large sessile polyp removed the hepatic flexure. He presents with hematochezia and hypotension. He has been transfused. He is undergoing colonoscopy. POSTOPERATIVE DIAGNOSES: 1. Small amount of dark blood and blood-stained fluid in left colon. 2. Otherwise, no active bleeding seen. 3. Large ulceration over the polypectomy site of the hepatic flexure area with a visible vessel. DESCRIPTION OF PROCEDURE: The patient was placed on his left lateral position and was given sedation by Anesthesia Department. A rectal exam was done before the scope was advanced into the rectum. The patient had blood-stained fluid on the exam finger. He also passed dark blood and some blood-stained fluid. A Pentax video colonoscope was introduced into the rectum and advanced all the way to the cecum. The exam was difficult because of the redundant colon. The polypectomy site identified around the hepatic flexure into the ascending colon area. A large ulceration with visible vessel. The exam was very prolonged because every time we tried to get in good position, the scope tend to fall back into the transverse colon and the scope was advanced back again. Initially, a hemoclip was placed. right location. Again, the scope fell back in the transverse colon and was advanced back. This happened several times. Every time the scope was carefully advanced and kept in good position before the injection, the scope tend to fall back into the transverse colon. Finally I was able to inject epinephrine 1:10,000 for a total of 7 mL at the polypectomy site. Following injection, the hemoclip was placed right over the visible vessel with good hemostasis. The colon decompressed and the scope removed. RECOMMENDATIONS: 1. Clear liquid diet. 2. Serial hemoglobin and hematocrit. 3. Because of the large ulceration with a visible vessel, there is a chance of recurrent bleeding because of ulceration. If the patient had recurrence of bleeding, may consider right colectomy. Job ID: [id number]
--- NOTE | 2018-12-25 12:28 | PRG ---
DATE OF SERVICE: 12/25/2018 SUBJECTIVE: A 57-year-old gentleman being seen for end-stage renal disease. The patient denies nausea, vomiting, or chest pain. OBJECTIVE: CONSTITUTIONAL: The patient is awake and alert, in no acute distress. VITAL SIGNS: Afebrile, pulse GENERAL APPEARANCE AND MENTAL STATUS: Fair. HEAD/NECK: Normocephalic. Atraumatic. EYES: EOMI. No deformity. EARS: Clear. No ulcers. NOSE: Intact. No lesions. MOUTH: Clear. No discharge. THROAT: Clear. No exudate. LUNGS: Clear. No crackles. CARDIAC: S1, S2. No rub. ABDOMEN: Benign. Bowel sounds positive. GENITALIA/RECTUM: Rhoades absent. BACK/EXTREMITIES: Edema 0+. NEUROLOGICAL: Alert and motor intact. SKIN: LYMPHATICS: LABORATORY DATA: Labs show hemoglobin 8.4. ASSESSMENT AND PLAN: 1. Stage 6 chronic kidney disease, stable. 2. Hypertension, stable. 3. Anemia, stable. 4. Medication based on GFR appropriate. Job ID: [id number]
--- NOTE | 2018-12-25 17:57 | PRG ---
DATE OF SERVICE: 12/25/2018 SUBJECTIVE: This is a 57-year-old male hospitalized after an episode of major lower GI bleeding with hypotension and shock. He has been transfused. He had a very large sessile polyp removed a week ago. He had a large ulcerated polyp or lesion in the polypectomy site with the visible vessel. This was injected with epinephrine and also a hemoclip was placed. He had done well over the last 24 hours without any recurrence of bleeding. He has passed some flatus, but not has any stool or any passing of blood. His blood count is likely stable. It was 8.4 yesterday. Today, it is standing at 8.4. His vital signs are stable. He has abdominal pain. No nausea and no vomiting. PHYSICAL EXAMINATION: VITAL SIGNS: His pulse is 75 and blood pressure is 120/76. The blood pressure is actually fluctuating very widely. LUNGS: Within normal limits. ABDOMEN: Soft. No organomegaly. No tenderness. No masses. IMPRESSION: 1. Post polypectomy bleeding, status post epinephrine injection, status post hemoclip placement. 2. Anemia of acute blood loss. 3. Chronic kidney disease. 4. Large colon polyp removed about a week ago. The polyp is a serrated adenoma. No malignancy. RECOMMENDATIONS: 1. Advance diet to a renal diet. 2. Follow up H and H. 3. Discontinue IV Protonix. Change it to p.o. Protonix 40 once a day. 4. If the patient has no recurrence of bleeding, hopefully can be discharged within the next 24 to 48 hours. Job ID: [id number]
--- NOTE | 2018-12-25 19:55 | PDOC.PN ---
- Subjective Encounter Start Date: 12/25/18 Encounter Start Time: 19:45 Subjective: f/u LGI due to post-polypectomy bleeding s/p Epinephrine and hemoclip -: with 4u PRBC's. States feeling much better tonight and tolerated po intake - Objective Resuscitation Status - Order Detail: 12/23/18 12:32 Resuscitation Status Routine Resuscitation Status: FULL: Full Resuscitation MAR Reviewed: Yes Vital Signs & Weight: Vital Signs (12 hours) Temp Pulse Ox 12/25/18 19:33 98 12/25/18 19:00 98.5 F 12/25/18 16:00 97.4 F L 12/25/18 11:52 98 F Weight Admit Weight 158 lb 15.253 oz Weight 158 lb 6 oz Most Recent Monitor Data Heart Rate from ECG 94 NIBP 131/100 NIBP BP-Mean 112 Respiration from ECG 20 SpO2 100 I&O: 12/24/18 12/25/18 12/26/18 06:59 06:59 06:59 Intake Total 3448.3 2190 1928 Output Total 155 1 1000 Balance 3293.3 2189 928 Result Diagrams: 12/25/18 05:24 12/25/18 05:24 Additional Labs: Laboratory Tests 12/23/18 12/23/18 12/23/18 11:10 13:08 19:49 WBC Hgb 9.3 L 8.6 L Plt Count Creatinine 2.71 H 12/24/18 12/24/18 12/24/18 00:00 04:06 05:27 WBC Hgb 7.6 L 7.8 L Plt Count Creatinine 3.95 H 12/24/18 17:09 WBC 13.4 H Hgb 8.4 L Plt Count 115 L Creatinine EKG Reviewed by me: Yes (Tele - SR) Phys Exam - Physical Examination Constitutional: NAD HEENT: PERRLA, sclera anicteric, oral pharynx no lesions Neck: no nodes, no JVD, supple, full ROM Respiratory: no wheezing, no rales, no rhonchi, clear to auscultation bilateral S1, S2 Cardiovascular: RRR, no significant murmur, no rub, gallop Gastrointestinal: soft, non-tender, no distention, positive bowel sounds Musculoskeletal: no edema, pulses present Neurological: normal sensation, moves all 4 limbs Psychiatric: A&O x 3 Skin: normal turgor, cap refill <2 seconds Dx/Plan (1) Acute lower GI bleeding Code(s): K92.2 - GASTROINTESTINAL HEMORRHAGE, UNSPECIFIED Status: Acute Comment: Secondary to recent polypectomy s/p Epi injection and hemoclip, stabilizing (2) Acute blood loss anemia Code(s): D62 - ACUTE POSTHEMORRHAGIC ANEMIA Status: Acute Comment: s/p 4u PRBC's and 3u plasma, serial H/H (3) Hemorrhagic shock Code(s): R57.8 - OTHER SHOCK Status: Acute Comment: Resolved (4) Bipolar disorder Code(s): F31.9 - BIPOLAR DISORDER, UNSPECIFIED Status: Chronic Comment: Continue Abilify, Lexapro, Cogentin, Klonopin (5) ESRD (end stage renal disease) on dialysis Code(s): N18.6 - END STAGE RENAL DISEASE; Z99.2 - DEPENDENCE ON RENAL DIALYSIS Status: Chronic Comment: HD per Renal service - Plan social work professor, DVT proph w/SCDs Continue supportive mgmt -: Serial H/H -: Avoid anticoagulation and NSAIDs -: HD per Renal service -: AM lab: BMP, CBC * .
[2018-12-25] MEDS: CLOZAPINE 100 MG PO SCH (20:46)
[2018-12-25] MEDS: Aripiprazole 15 MG TAB PO SCH (20:47)
[2018-12-25] MEDS: Rosuvastatin 20 MG TAB PO SCH (20:47)
[2018-12-26 05:21] LABS: #Basophils 0.1 thou/uL (0.0-0.2); #Eosinphils 0.8 thou/uL (0.0-0.7); #Monocytes 0.9 thou/uL (0.11-0.59); #Neutrophils 7.4 thou/uL (1.40-6.50); %Basophils 0.6 % (0.0-1.0); %Eosinophils 7.5 % (0.0-10.0); %Lymphocytes 10.2 % (21.0-51.0); %Monocytes 9.1 % (0.0-10.0); %Neutrophils 72.6 % (42.0-75.0); Hemoglobin 7.6 g/dL (14.0-18.0); Mean Corpuscular HGB CONC 33.5 g/dL (32.0-36.0); Mean Corpuscular Hemoglobin 32.2 pg (27.0-31.0); Mean Corpuscular Volume 96.1 fL (78.0-98.0); Mean Platelet Volume 7.1 fL (7.4-10.4); Platelet Count 135 thou/uL (130-400); RBC Distribution Width 13.5 % (11.5-14.5); Red Blood Cell (RBC) Count 2.37 mill/uL (4.70-6.10); White Blood Cell (WBC) Count 10.2 thou/uL (4.8-10.8)
[2018-12-26 05:40] LABS: Anion Gap 12 mmol/L (10-20); BUN (Urea Nitrogen) 32 mg/dL (8.4-25.7); Calc. Creatinine Clearance 14 mL/min (70-130); Calcium 8.9 mg/dL (7.8-10.44); Carbon Dioxide 33 mmol/L (22-29); Chloride 98 mmol/L (98-107); Estimated GFR-MDRD 10; Glucose 113 mg/dL (70-105); Potassium 3.4 mmol/L (3.5-5.1); Sodium 140 mmol/L (136-145)
[2018-12-26] MEDS: Sevelamer Carbonate 800 MG TAB PO SCH ×3 (11:28→17:09)
[2018-12-26] MEDS: Escitalopram Oxalate 10 mg Tablet PO SCH (11:29)
[2018-12-26] MEDS: Benztropine 1 MG TAB PO SCH (11:29)
[2018-12-26] MEDS: clonazePAM 0.5 MG TAB PO SCH ×3 (11:29→20:08)
--- NOTE | 2018-12-26 12:51 | PRG ---
DATE OF SERVICE: 12/26/2018 SUBJECTIVE: This is a 57-year-old gentleman being seen for end-stage renal disease. The patient denies any nausea, vomiting, or chest pain. OBJECTIVE: See above. CONSTITUTIONAL: The patient is awake, alert. VITAL SIGNS: Afebrile. Pulse 100, breathing 16, blood pressure 133/97. GENERAL APPEARANCE AND MENTAL STATUS: Fair. HEAD/NECK: Normocephalic. Atraumatic. EYES: EOMI. No deformity. EARS: Clear. No ulcers. NOSE: Intact. No lesions. MOUTH: Clear. No discharge. THROAT: Clear. No exudate. LUNGS: Clear. No crackles. CARDIAC: S1, S2. No rub. ABDOMEN: Benign. Bowel sounds positive. GENITALIA/RECTUM: Rhoades absent. BACK/EXTREMITIES: Edema 0+. NEUROLOGICAL: Alert and motor intact. SKIN: LYMPHATICS: LABORATORY DATA: Labs showed hemoglobin 7.6. ASSESSMENT: 1. Stage 6 chronic kidney disease, continue hemodialysis. 2. Hypertension, stable. 3. Anemia. I will recommend transfusion. 4. Medication based on GFR appropriate. Job ID: [id number]
--- NOTE | 2018-12-26 12:58 | PRG ---
DATE OF SERVICE: 12/26/2018 SUBJECTIVE: This is a 57-year-old male with occult GI bleeding, colon polyp. The patient had a very large sessile polyp removed from the right colon approximately 8 days ago. The patient came back to the ER over the weekend with hematochezia and hypotension. He underwent a colonoscopy and was found to have a visible vessel over the polypectomy site. The vessel was clipped. He also had an injection around the polypectomy site with 7 mL of epinephrine. The patient had done well since his procedure on Tuesday afternoon. He was advanced to renal diet yesterday. He has had no abdominal pain, no nausea or vomiting. He has had no stool tonight and this morning. Vital signs are stable. However, his blood count did drop slowly from 8.4 to 7.6 today. this morning. OBJECTIVE: VITAL SIGNS: Afebrile, pulse is 93, and blood pressure 133/97. CARDIOVASCULAR SYSTEM/LUNGS: Within normal limits. ABDOMEN: Soft. No organomegaly. No tenderness. No masses. RECOMMENDATION: 1. Follow up H and H. 2. May transfer him out of ICU today. 3. Observe for 24 hours. If no recurrence of bleeding, may consider discharge back to care home tomorrow. I did talk to his brother, Dr. Ralph Bauer, who is in I believe [place]. the progress and what was done this admission. Job ID: [id number]
[2018-12-26 14:51] LABS: Hemoglobin 8.3 g/dL (14.0-18.0)
[2018-12-26] MEDS ORDERED: Heparin 10,000 UNITS/ 10 ML VIAL ONE (15:00)
--- NOTE | 2018-12-26 17:40 | PDOC.PN ---
- Subjective Encounter Start Date: 12/26/18 Encounter Start Time: 16:30 Subjective: f/u for GI bleed s/p 4u PRBC's and 3u plasma. Feels better overall and -: tolerating po intake. Ambulated short distance in room today. - Objective Resuscitation Status - Order Detail: 12/23/18 12:32 Resuscitation Status Routine Resuscitation Status: FULL: Full Resuscitation MAR Reviewed: Yes Vital Signs & Weight: Vital Signs (12 hours) Temp BP Pulse Ox 12/26/18 16:00 98.4 F 12/26/18 15:19 137/92 H 12/26/18 11:20 98.7 F 12/26/18 07:30 98.7 F 100 Weight Admit Weight 158 lb 15.253 oz Weight 158 lb 6 oz Most Recent Monitor Data Heart Rate from ECG 95 NIBP 149/97 NIBP BP-Mean 112 Respiration from ECG 18 SpO2 100 I&O: 12/25/18 12/26/18 12/27/18 06:59 06:59 06:59 Intake Total 2190 2528 520 Output Total 1 1300 Balance 2189 1228 520 Result Diagrams: 12/26/18 14:21 12/26/18 04:13 Additional Labs: Laboratory Tests 12/23/18 12/23/18 12/23/18 11:10 13:08 19:49 WBC Hgb 9.3 L 8.6 L Plt Count Creatinine 2.71 H 12/24/18 12/24/18 12/24/18 00:00 04:06 05:27 WBC Hgb 7.6 L 7.8 L Plt Count Creatinine 3.95 H 12/24/18 17:09 WBC 13.4 H Hgb 8.4 L Plt Count 115 L Creatinine EKG Reviewed by me: Yes (Tele - SR) Phys Exam - Physical Examination Constitutional: NAD HEENT: PERRLA, sclera anicteric, oral pharynx no lesions Neck: no nodes, no JVD, supple, full ROM Respiratory: no wheezing, no rales, no rhonchi, clear to auscultation bilateral S1, S2 Cardiovascular: RRR, no significant murmur, no rub, gallop Gastrointestinal: soft, non-tender, no distention, positive bowel sounds Musculoskeletal: no edema, pulses present Neurological: normal sensation, moves all 4 limbs Psychiatric: A&O x 3 Skin: normal turgor, cap refill <2 seconds Dx/Plan (1) Acute lower GI bleeding Code(s): K92.2 - GASTROINTESTINAL HEMORRHAGE, UNSPECIFIED Status: Acute Comment: Secondary to recent polypectomy s/p Epi injection and hemoclip, stabilizing, avoid anticoagulation and NSAIDs (2) Acute blood loss anemia Code(s): D62 - ACUTE POSTHEMORRHAGIC ANEMIA Status: Acute Comment: s/p 4u PRBC's and 3u plasma, serial H/H, stabilizing (3) Hemorrhagic shock Code(s): R57.8 - OTHER SHOCK Status: Acute Comment: Resolved (4) Bipolar disorder Code(s): F31.9 - BIPOLAR DISORDER, UNSPECIFIED Status: Chronic Comment: Continue Abilify, Lexapro, Cogentin, Klonopin (5) ESRD (end stage renal disease) on dialysis Code(s): N18.6 - END STAGE RENAL DISEASE; Z99.2 - DEPENDENCE ON RENAL DIALYSIS Status: Chronic Comment: HD per Renal service - Plan PT/OT, social services analyst, out of bed/ambulate, DVT proph w/SCDs Stable currently -: Continue serial H/H monitoring -: Avoid anticoagulation and NSAIDs -: Protonix 40mg po daily -: AM lab: BMP, CBC * Likely home in 24h
[2018-12-26] MEDS: CLOZAPINE 100 MG PO SCH (20:09)
[2018-12-26] MEDS: Rosuvastatin 20 MG TAB PO SCH (20:09)
[2018-12-26] MEDS: guaiFENesin ER 600 MG TAB PO SCH (20:09)
[2018-12-26] MEDS: Aripiprazole 15 MG TAB PO SCH (20:09)
[2018-12-27 08:13] LABS: #Basophils 0.1 thou/uL (0.0-0.2); #Eosinphils 0.9 thou/uL (0.0-0.7); #Monocytes 1.1 thou/uL (0.11-0.59); #Neutrophils 8.6 thou/uL (1.40-6.50); %Basophils 0.7 % (0.0-1.0); %Eosinophils 7.8 % (0.0-10.0); %Lymphocytes 8.2 % (21.0-51.0); %Monocytes 9.5 % (0.0-10.0); %Neutrophils 73.8 % (42.0-75.0); Hemoglobin 8.4 g/dL (14.0-18.0); Mean Corpuscular HGB CONC 32.9 g/dL (32.0-36.0); Mean Corpuscular Hemoglobin 31.5 pg (27.0-31.0); Mean Corpuscular Volume 95.7 fL (78.0-98.0); Mean Platelet Volume 6.9 fL (7.4-10.4); Platelet Count 190 thou/uL (130-400); RBC Distribution Width 13.6 % (11.5-14.5); Red Blood Cell (RBC) Count 2.67 mill/uL (4.70-6.10); White Blood Cell (WBC) Count 11.7 thou/uL (4.8-10.8)
[2018-12-27 08:29] LABS: Anion Gap 12 mmol/L (10-20); BUN (Urea Nitrogen) 23 mg/dL (8.4-25.7); Calc. Creatinine Clearance 19 mL/min (70-130); Carbon Dioxide 29 mmol/L (22-29); Chloride 101 mmol/L (98-107); Estimated GFR-MDRD 14; Glucose 111 mg/dL (70-105); Potassium 4.3 mmol/L (3.5-5.1); Sodium 138 mmol/L (136-145)
[2018-12-27] MEDS: Benztropine 1 MG TAB PO SCH (08:54)
[2018-12-27] MEDS: Sevelamer Carbonate 800 MG TAB PO SCH ×2 (08:54→11:31)
[2018-12-27] MEDS: Escitalopram Oxalate 10 mg Tablet PO SCH (08:55)
[2018-12-27] MEDS: clonazePAM 0.5 MG TAB PO SCH ×2 (08:55→14:43)
[2018-12-27] MEDS: guaiFENesin ER 600 MG TAB PO SCH (08:56)
--- NOTE | 2018-12-27 11:57 | PRG ---
DATE OF SERVICE: 12/27/2018 SUBJECTIVE: A 57-year-old male being seen for end-stage renal disease. The patient denies any nausea, vomiting, or chest pain. OBJECTIVE: CONSTITUTIONAL: The patient is awake and alert. VITAL SIGNS: Afebrile, pulse 100, breathing 16, and blood pressure 123/81. GENERAL APPEARANCE AND MENTAL STATUS: Fair. HEAD/NECK: Normocephalic. Atraumatic. EYES: EOMI. No deformity. EARS: Clear. No ulcers. NOSE: Intact. No lesions. MOUTH: Clear. No discharge. THROAT: Clear. No exudate. LUNGS: Clear. No crackles. CARDIAC: S1, S2. No rub. ABDOMEN: Benign. Bowel sounds positive. GENITALIA/RECTUM: Rhoades absent. BACK/EXTREMITIES: Edema 0+. NEUROLOGICAL: Alert and motor intact. SKIN: LYMPHATICS: LABORATORY DATA: Reviewed. ASSESSMENT: 1. Stage 6 chronic kidney disease, continue hemodialysis. 2. Hypertension, stable. 3. Anemia, stable. 4. Medication based on GFR appropriate. Job ID: [id number]
[2018-12-27 15:03] VITALS: BP 144/78; TEMP 97.8
--- NOTE | 2018-12-27 15:11 | DIS ---
DATE OF ADMISSION: 12/23/2018 DATE OF DISCHARGE: 12/27/2018 DISCHARGE DIAGNOSES: 1. Acute lower gastrointestinal bleeding secondarily to post polypectomy bleed. 2. Acute blood loss anemia, status post 4 units of packed red blood cells, stable. 3. Hemorrhagic shock secondarily to acute lower gastrointestinal bleeding, resolved. 4. End-stage renal disease with hemodialysis. 5. Bipolar disorder. CONSULTATIONS: 1. Dr. Jimenez with GI Service. 2. Dr. Huizar with Nephrology Service. 3. Dr. Edmond with Pulmonology Critical Care Service. PERTINENT LAB AND X-RAY FINDINGS: Creatinine ranged between 2.71 to 5.82. Estimated GFR ranged between 10 to 24. CBC showed a white blood cell count ranging between 9.0 to 13.4, hemoglobin ranged between 7.[address] angiogram of the abdomen and pelvis dated 12/23/2018, showed complex multifocal aneurysm of the thoracic and abdominal aorta, unchanged when compared to prior imaging. Focal area of colonic wall thickening and pericolonic fat stranding in the region of the cecum/proximal ascending colon. Questionable ischemic colitis. Colonoscopy dated 12/24/2018, showed large ulceration over prior polypectomy site of the hepatic flexure with visible vessel, status post epinephrine injection and hemoclip placement. HOSPITAL COURSE: The patient was initially admitted after presenting with acute lower GI bleeding and associated hemorrhagic shock. The patient underwent general evaluation after transfer from [facility] for low rectal bleeding with associated hypotension. The patient was placed on massive transfusion protocol and received 4 units of packed red blood cells as well as 3 units of plasma. The patient was evaluated by the GI Service after recent colonoscopy on 12/05/2018, undergoing a previous large polypectomy. The patient underwent evaluation by the GI Service with colonoscopy exam showing evidence of bleeding near the previous polypectomy site. The patient underwent epinephrine injection as well as hemoclip placement with control of the hemorrhage. The patient was monitored with serial hemoglobins showing overall stable trend through the remainder of the hospital course. The patient was advanced from clear liquids to regular oral intake, tolerating without difficulty. Overall, the patient did remain clinically stable through the hospital course. The patient received maintenance hemodialysis throughout his hospital stay without complication. I have examined the patient at the time of discharge and discussed followup instructions. The patient overall clinically stable and ready for discharge on 12/27/2018. DISCHARGE MEDICATIONS: 1. ProAir HFA 2 puffs inhaled t.i.d. p.r.n. 2. Alpha-lipoic acid 200 mg p.o. daily. 3. Abilify 30 mg p.o. at bedtime. 4. Benztropine 0.5 mg p.o. daily. 5. Vitamin D3 of 2000 units p.o. daily. 6. Clonazepam 0.5 mg p.o. t.i.d.. 7. Clozaril 100 mg p.o. at bedtime. 8. Docusate sodium 100 mg p.o. b.i.d. 9. Lexapro 10 mg p.o. at bedtime. 10. Gabapentin 300 mg p.o. t.i.d. 11. Linzess 290 mcg p.o. at bedtime. 12. Midodrine 10 mg p.o. b.i.d. 13. Nepro Carb Steady 1000 mL p.o. b.i.d. 14. MiraLAX 17 g p.o. daily. 15. Crestor 20 mg p.o. at bedtime. 16. Renvela 1600 mg p.o. t.i.d. with meals. 17. Enteric-coated aspirin 81 mg p.o. daily, may resume on 12/30/2018. FOLLOWUP: The patient may follow up with Dr. Burger at [facility]. CONDITION ON DISCHARGE: Stable. ACTIVITY: Ad daron. Rolling walker for ambulation. DIET: Renal. CODE STATUS: Full. SPECIAL INSTRUCTIONS: Repeat CBC on 12/29/2018. DISPOSITION: Discharged to [facility] on 12/27/2018. TIME SPENT: Total time preparing and coordinating discharge, 32 minutes. Job ID: [id number]
== END 2018-12-27 16:37 | DRG 919 ==
LOC: ERS 10:48 → CCU 11:34 → T4-B 12-26 18:23
PROVIDERS: ADMIT Internal Medicine; ATTEND Internal Medicine
PROC: 30233K1 Transfusion of Nonautologous Frozen Plasma into Peripheral Vein, Percutaneous Approach (ICD-10-PCS; 2018-12-23)
PROC: 0W3P8ZZ Control Bleeding in Gastrointestinal Tract, Via Natural or Artificial Opening Endoscopic (ICD-10-PCS; principal; 2018-12-24)
PROC: 3E0H8GC Introduction of Other Therapeutic Substance into Lower GI, Via Natural or Artificial Opening Endoscopic (ICD-10-PCS; 2018-12-24)
PROC: 30233N1 Transfusion of Nonautologous Red Blood Cells into Peripheral Vein, Percutaneous Approach (ICD-10-PCS; 2018-12-24)
PROC: 5A1D70Z Performance of Urinary Filtration, Intermittent, Less than 6 Hours Per Day (ICD-10-PCS; 2018-12-24)
PROC: 5A1D70Z Performance of Urinary Filtration, Intermittent, Less than 6 Hours Per Day (ICD-10-PCS; 2018-12-26)
DX: K91.840 Postprocedural hemorrhage of a digestive system organ or structure following a digestive system procedure (principal); R57.8 Other shock; N18.6 End stage renal disease; K62.5 Hemorrhage of anus and rectum; I12.0 Hypertensive chronic kidney disease with stage 5 chronic kidney disease or end stage renal disease; K63.3 Ulcer of intestine; D62 Acute posthemorrhagic anemia; I69.351 Hemiplegia and hemiparesis following cerebral infarction affecting right dominant side; Z99.2 Dependence on renal dialysis; G62.9 Polyneuropathy, unspecified; K21.9 Gastro-esophageal reflux disease without esophagitis; D63.1 Anemia in chronic kidney disease; Z96.642 Presence of left artificial hip joint; F31.9 Bipolar disorder, unspecified; F25.9 Schizoaffective disorder, unspecified; E78.5 Hyperlipidemia, unspecified; I73.9 Peripheral vascular disease, unspecified; K59.09 Other constipation; I25.10 Atherosclerotic heart disease of native coronary artery without angina pectoris; E55.9 Vitamin D deficiency, unspecified; Z79.82 Long term (current) use of aspirin; Z87.891 Personal history of nicotine dependence; Z86.010 Personal history of colon polyps; Z95.5 Presence of coronary angioplasty implant and graft; Z95.820 Peripheral vascular angioplasty status with implants and grafts; Z80.1 Family history of malignant neoplasm of trachea, bronchus and lung; Z80.0 Family history of malignant neoplasm of digestive organs
CPT/HCPCS: 36415; 36430; 74174; 80048; 80053; 85014; 85018; 85025; 85610; 85730; 86850; 86900; 86901; 90935; 96365; 96375; 96376; C9113; G0257; J0696; J1644; J2405; J2704; J7050; P9016; P9048; Q9966

== ENCOUNTER 2019-06-15 08:27 | Outpatient (CLI) | payer MEDICARE, MEDICAID ==
--- NOTE | 2019-06-15 12:50 | CT ---
CTA OF ABDOMEN AND PELVIS WITH BILATERAL LOWER EXTREMITY RUNOFF UTILIZING IV CONTRAST AND 3D REFORMAT JOSIAH IMAGING COMPARISON: CT of the abdomen and pelvis and CTA of the abdomen dated 12/23/18. INDICATION: Abdominal aortic aneurysm. FINDINGS: There is prominent emphysematous change involving the lung bases. There are areas of subsegmental vol ume loss involving the lower lobes. There is a 4.6 cm distal thoracic aortic aneurysm which is stable. No focal hepatic lesion is evident. There are dependent stones within the gallbladder. The pancreas and adrenal glands are normal appearing. There are atrophic kidneys bilaterally with bilateral renal cysts. No free fluid or enlarged lymph nodes are evident. There is a mild amount of retained stool within the colon. There are retroperitoneal soft tissue calcifications likely related to fat necrosis from prior surgic al intervention. There is postprocedural change of a left total hip prosthesis. There is diffuse osteopenia. There is advanced disc degenerative disease at L3-4. No acute fracture or subluxation is evident. VASCULATURE: There is stable ectasia of the suprarenal abdominal aorta. Mild multifocal luminal irregularity of th e celiac and SMA persists. There is stent present within the proximal right renal artery with suggest ion of at least moderate to severe narrowing of the right renal artery just distal to the stent. Ther e is persistent moderate to severe narrowing of the proximal left renal artery. This is stable to the prior exam. The SUN is occluded. There is an aortobifemoral bypass graft that is patent. The excluded distal abdo olena aorta is stable in size measuring 2.9 cm. The excluded common iliac artery aneurysms are stable with the left measuring 3.2 cm and the right measuring 1.6 cm. There is complete occlusion of the right superficial femoral artery and right popliteal artery. There is opacification of the deep femoral artery with numerous collaterals bypassing the popliteal artery and opacifying the distal tibial peroneal trunk and anterior tibial artery. There is three vessel ru noff to the level of the right ankle. There is opacification of the left common femoral artery but a complete occlusion of the left superfi cial femoral artery and left popliteal artery. There is opacification of the deep femoral artery with numerous collaterals filling the distal left tibioperoneal trunk, left anterior tibial artery. There is at least two vessel runoff to the ankle via the peroneal and left anterior tibial artery. The lef t posterior tibial artery demonstrates multifocal disease and is likely occluded. IMPRESSION: 1. Stable appearance of the aortobifemoral bypass graft with opacification of the aortobifemoral limbs. There is complete occlusion of both superficial femoral arteries and popliteal arteries bilat erally. There is opacification of the deep femoral arteries with numerous collaterals feeding the tib ioperoneal trunks bilaterally as well as the anterior tibial artery. There is three vessel runoff in the right ankle and two vessel runoff to the level of the left ankle. 2. Moderate to high grade stenosis involving the proximal left renal artery and proximal right r enal artery just distal to the right renal artery endograft stent. 3. Stable moderate luminal irregularity involving the celiac and SMA arteries. 4. Stable distal thoracic aortic aneurysm measuring 4.6 cm. 5. Other chronic findings as above. POS: OFF
[2019-06-15] MEDS ORDERED: Iopamidol 370 76% 100 ML VIAL ONE (16:27)
== END 2019-06-15 08:28 | disposition home or self-care (01) ==
LOC: CT 08:27
PROVIDERS: ATTEND Internal Medicine Cardiovascular Disease
DX: I71.4 Abdominal aortic aneurysm, without rupture (principal); I70.203 Unspecified atherosclerosis of native arteries of extremities, bilateral legs; I70.1 Atherosclerosis of renal artery; I71.2 Thoracic aortic aneurysm, without rupture; N28.1 Cyst of kidney, acquired; N28.89 Other specified disorders of kidney and ureter; K59.00 Constipation, unspecified; M51.36 Other intervertebral disc degeneration, lumbar region; M85.80 Other specified disorders of bone density and structure, unspecified site; Z96.642 Presence of left artificial hip joint
CPT/HCPCS: 75635; Q9967

== ENCOUNTER 2020-03-03 08:03 | Outpatient (CLI) | payer MEDICARE, MEDICAID ==
[2020-03-03] MEDS ORDERED: Iopamidol 370 76% 100 ML VIAL ONE (09:00)
--- NOTE | 2020-03-03 10:14 | CT ---
CT ANGIOGRAM ABDOMEN AND PELVIS WITH IV CONTRAST AND 3D IMAGING CT ARTERIOGRAM RUNOFF BILATERAL LOWER EXTREMITIES WITH IV CONTRAST AND 3D IMAGING: HISTORY: Vascular disease. Abdominal aortic aneurysm with repair. Followup. COMPARISON: 06/15/2019 FINDINGS: Circumferential wall thickening and plaque involving the lower thoracic and abdominal aorta with mura l calcification similar in appearance to the previous exam. AP luminal diameter of the upper abdominal aorta just above the level of the superior mesenteric artery remains 2.8 cm. Good contrast opacification. A patent aortobifemoral stent graft is in place, excluding occluded bilateral iliac arteries and the thrombosed 3.4 cm left iliac aneurysm. Celiac trunk is patent. There is a short segment focus of approximately 50-60% stenosis at the proxim al superior mesenteric artery with mild to moderate plaque more peripherally. Inferior mesenteric artery is not patent at its origin. Right renal artery stent remains in place with minimal contrast o pacification of the remaining right renal arteries primarily via collaterals. Very high-grade stenosis at the midportion of the left main renal artery. There is poor contrast enhancement of each kidney. There is occlusion at the origin of the right femoral artery with contrast to collateral flow via the deep femoral artery. Collateralization of 3 vessels at the distal lower leg. Long segment occlusion of the left femoral and popliteal arteries also present with collateralization via branches from the deep femoral artery to three-vessel opacification at the level of the ankle. Parenchymal scarring and atelectasis at the lung bases. Hyperdense stones within the gallbladder lume n. Cysts arise from the cortex of the kidneys, measuring up to 2.3 cm greatest diameter at the inferior pole of the left kidney. Large amount of stool throughout the colon and rectum. IMPRESSION : 1. Aortobifemoral bypass graft is patent. Excluded left common iliac artery aneurysm is stable. 2. Persistent long segment occlusion of each femoral and popliteal artery. 3. Moderate to high-grade stenosis at the proximal superior mesenteric artery. High-grade versus com plete occlusion of the renal arteries. 4. Cholelithiasis. 5. Constipation. 6. Chronic-type findings are stable. Transcribed Date/Time: 03/03/2020 10:49 AM
== END 2020-03-03 08:04 | disposition home or self-care (01) ==
LOC: CT 08:03
PROVIDERS: ATTEND Internal Medicine Cardiovascular Disease
DX: I71.4 Abdominal aortic aneurysm, without rupture (principal); K59.00 Constipation, unspecified; K80.20 Calculus of gallbladder without cholecystitis without obstruction; K55.1 Chronic vascular disorders of intestine; I72.3 Aneurysm of iliac artery; I70.203 Unspecified atherosclerosis of native arteries of extremities, bilateral legs; I70.0 Atherosclerosis of aorta; I70.1 Atherosclerosis of renal artery; I87.8 Other specified disorders of veins; I74.5 Embolism and thrombosis of iliac artery; J98.4 Other disorders of lung; J98.11 Atelectasis; N28.1 Cyst of kidney, acquired; Z95.828 Presence of other vascular implants and grafts
CPT/HCPCS: 75635; Q9967

== ENCOUNTER 2020-09-03 18:05 | Emergency (ER) | payer MEDICARE, MEDICAID ==
--- NOTE | 2020-09-03 18:59 | RAD ---
EXAM: CHEST ONE VIEW HISTORY: Exposure to Covid. COMPARISON: 07/08/2017 FINDINGS: Cardiac silhouette and pulmonary vasculature are within normal limits for the portable technique of t he study. Relative lucency is seen in the upper lung zones bilaterally greater on the right suggesting emphysematous changes. Linear densities are seen at each lung base which may represent bib asilar atelectasis. No consolidation or pleural fluid is appreciated. The thoracic aorta remains ectatic. A vascular stent overlies the region of the left subclavian vessels. Postoperative changes r ight shoulder are seen IMPRESSION: 1. No acute cardiopulmonary process. 2. Findings suggestive of bibasilar atelectasis. 3. Emphysematous changes upper lobes bilaterally greater on the right. 4. Ectasia thoracic aorta.
[2020-09-04 14:53] LABS: SARS-CoV-2 MS2 Positive; SARS-CoV-2 N Gene Positive; SARS-CoV-2 S Gene Positive; SARS-CoV-2 by NAA DETECTED (NotDetected); SARS-CoV-2 orf1ab Positive
== END 2020-09-03 20:53 | disposition home or self-care (01) ==
LOC: ERS 18:05
DX: U07.1 COVID-19 (principal); E78.00 Pure hypercholesterolemia, unspecified; F31.9 Bipolar disorder, unspecified; I10 Essential (primary) hypertension; N28.9 Disorder of kidney and ureter, unspecified; Z87.891 Personal history of nicotine dependence; Z86.73 Personal history of transient ischemic attack (TIA), and cerebral infarction without residual deficits; Z99.2 Dependence on renal dialysis
CPT/HCPCS: 71045; 99284; U0003; 87635

== ENCOUNTER 2020-09-05 19:11 | Emergency (ER) | payer MEDICARE, MEDICAID ==
[~2020-09-05 19:11] MED LIST: Iopamidol-370 76% 500 ML 1 ML ONE
[2020-09-05 20:31] LABS: #Eosinphils 0.2 thou/uL (0.0-0.7); #Lymphocytes 0.8 thou/uL (1.20-3.40); %Basophils 0.4 % (0.0-1.0); %Eosinophils 2.7 % (0.0-10.0); %Lymphocytes 10.9 % (21.0-51.0); %Monocytes 14.7 % (0.0-10.0); %Neutrophils 71.3 % (42.0-75.0); Hemoglobin 11.5 g/dL (14.0-18.0); Mean Corpuscular HGB CONC 34.2 g/dL (32.0-36.0); Mean Corpuscular Hemoglobin 32.2 pg (27.0-31.0); Mean Corpuscular Volume 94.1 fL (78.0-98.0); Platelet Count 151 thou/uL (130-400); RBC Distribution Width 13.8 % (11.5-14.5); Red Blood Cell (RBC) Count 3.57 mill/uL (4.70-6.10)
[2020-09-05 20:38] LABS: INR-International Normal Ratio 1.1; PTT 32.4 sec (22.9-36.1)
[2020-09-05 20:46] LABS: Bacteria/HPF 4+ HPF (None Seen); Bilirubin Negative (Negative); Blood, Urine 3+ (Negative); Clarity Turbid (Clear); Glucose, Urine (Dipstick) Normal (Negative); Ketone, Urine Negative (Negative); Leukocyte 25 Leu/uL (Negative); Nitrite Negative (Negative); Protein, Urine (Dipstick) 200 mg/dL (Neg-Trace); RBC/HPF Greater than 50 HPF (0-3); Specific Gravity, Urine 1.017 (1.002-1.036); Squamous Epithelial None Seen HPF (0-3); Urobilinogen Normal mg/dL (Less than 2); pH, Urine 6.5 (5.0-9.0)
[2020-09-05 20:52] LABS: ALT (SGPT) 27 U/L (8-55); AST (SGOT) 55 U/L (5-34); Albumin 3.6 g/dL (3.5-5.0); Alkaline Phosphatase 99 U/L (40-110); Anion Gap 17 mmol/L (10-20); BUN (Urea Nitrogen) 45 mg/dL (8.4-25.7); Bilirubin, Total 0.3 mg/dL (0.2-1.2); Calc. Creatinine Clearance 0 mL/min (70-130); Carbon Dioxide 27 mmol/L (22-29); Chloride 102 mmol/L (98-107); Estimated GFR-MDRD 8; Globulin 3.5 g/dL (2.4-3.5); Glucose 139 mg/dL (70-105); Potassium 4.6 mmol/L (3.5-5.1); Protein, Total 7.1 g/dL (6.0-8.3); Sodium 141 mmol/L (136-145)
--- NOTE | 2020-09-05 22:37 | CT ---
CT ABDOMEN WITH CONTRAST CT PELVIS WITH CONTRAST: DATE: 09/05/20 TIME: 9:06 p.m. HISTORY: 59-year-old male with hematochezia and hematuria. COMPARISON: None. FINDINGS: No hydronephrosis. Multiple calcified gallstones within contracted gallbladder. Somewhat small right kidney. Multiple bilateral renal cysts. No hydronephrosis. Renal parenchyma is bilaterally thin and s lightly heterogeneous in attenuation diffusely. Fusiform abdominal aortic aneurysm as demonstrated on the 03/03/20 study, and aortobifemoral bypass marleny geena. Large volume of colonic solid stool suggestive of constipation. No small bowel dilation. Metallic left total hip replacement prosthesis causes severe streak artifact, partially obscuring pato dder and other portions of pelvic cavity contents. No gross acute pathology identified involving sple en, pancreas, or liver. Unremarkable adrenals. Excluded left [place] common iliac artery aneurysm, occluded. Normal appendix. IMPRESSION: 1. No acute findings. 2. Multiple chronic findings. 3. Multiple bilateral renal cysts. 4. Right kidney is slightly small. 5. Findings suggestive of constipation. 6. Cholelithiasis. NICOLASA Rivera POS: RUCHI
== END 2020-09-06 00:40 ==
LOC: ERS 19:11
DX: R31.9 Hematuria, unspecified (principal); I10 Essential (primary) hypertension; E78.00 Pure hypercholesterolemia, unspecified; F31.9 Bipolar disorder, unspecified; Z86.73 Personal history of transient ischemic attack (TIA), and cerebral infarction without residual deficits
CPT/HCPCS: 36415; 51701; 74177; 80053; 81003; 81015; 85025; 85610; 85730; 86850; 86900; 86901; Q9967

== ENCOUNTER 2020-10-26 14:36 | Observation (INO) | payer MEDICARE, MEDICAID ==
[2020-10-26] MEDS ORDERED: Naloxone HCl 0.4 mg/ml Vial ONE ×2 (14:52→16:21)
[2020-10-26] MEDS ORDERED: Naloxone HCl 2 mg/2 ml Syringe ONE (14:52)
[2020-10-26 15:18] LABS: #Lymphocytes 0.9 thou/uL (1.20-3.40); #Neutrophils 9.7 thou/uL (1.40-6.50); %Basophils 0.4 % (0.0-1.0); %Lymphocytes 7.1 % (21.0-51.0); %Monocytes 7.8 % (0.0-10.0); %Neutrophils 76.6 % (42.0-75.0); Mean Corpuscular HGB CONC 33.3 g/dL (32.0-36.0); Mean Corpuscular Volume 96.3 fL (78.0-98.0); Mean Platelet Volume 7.2 fL (7.4-10.4); Platelet Count 138 thou/uL (130-400); RBC Distribution Width 14.2 % (11.5-14.5); Red Blood Cell (RBC) Count 3.43 mill/uL (4.70-6.10); White Blood Cell (WBC) Count 12.6 thou/uL (4.8-10.8)
[2020-10-26 16:26] LABS: Alcohol Less than 10 mg/dL (Less than 10)
[2020-10-26 16:29] LABS: Acetaminophen Less than 6.0 mcg/mL (10.0-30.0); Salicylate Less than 8.0 mg/dL (15.0-30.0)
[2020-10-26 16:30] LABS: ALT (SGPT) 28 U/L (8-55); AST (SGOT) 29 U/L (5-34); Albumin 3.8 g/dL (3.5-5.0); Alkaline Phosphatase 118 U/L (40-110); Anion Gap 16 mmol/L (10-20); BUN (Urea Nitrogen) 42 mg/dL (8.4-25.7); Bilirubin, Total 0.5 mg/dL (0.2-1.2); Calc. Creatinine Clearance 0 mL/min (70-130); Calcium 8.8 mg/dL (7.8-10.44); Carbon Dioxide 31 mmol/L (22-29); Chloride 99 mmol/L (98-107); Globulin 3.8 g/dL (2.4-3.5); Glucose 76 mg/dL (70-105); Lipase 45 U/L (8-78); Potassium 5.5 mmol/L (3.5-5.1); Protein, Total 7.6 g/dL (6.0-8.3); Sodium 140 mmol/L (136-145)
[2020-10-26] MEDS ORDERED: Naloxone HCl 2 MG, Admixture Fee 1 EACH in Sodium Chloride 0.9% 500 ML IV SCH (16:45)
[2020-10-26 16:55] LABS: Bilirubin Negative (Negative); Blood, Urine Trace (Negative); Glucose, Urine (Dipstick) Negative (Negative); Ketone, Urine Negative (Negative); Leukocyte Negative (Negative); Nitrite Negative (Negative); Protein, Urine (Dipstick) 100 mg/dL (Neg-Trace); Urobilinogen 0.2 mg/dL (Less than 2); pH, Urine 8.5 (5.0-9.0)
[2020-10-26 16:57] LABS: Clarity Clear (Clear)
[2020-10-26 17:04] LABS: RBC/HPF None Seen HPF (0-3); Squamous Epithelial 0-3 HPF (0-3); WBC/HPF 0-3 HPF (0-3)
[2020-10-26 17:05] LABS: Bacteria/HPF 4+ HPF (None Seen); Sperm/HPF Rare HPF (None Seen)
[2020-10-26 17:06] LABS: Amphetamine Not Detected (NotDetected); Barbiturates Screen Not Detected (NotDetected); Benzodiazepine Screen Not Detected (NotDetected); Cocaine Metabolite Screen Not Detected (NotDetected); Medtox Control Line Valid? VALID (VALID); Medtox Reader # READER 4; Methadone Not Detected (NotDetected); Methamphetamine Not Detected (NotDetected); Opiate Screen Not Detected (NotDetected); Oxycodone Screen Not Detected (NotDetected); Phencyclidine (PCP) Not Detected (NotDetected); THC/Cannabinoid Screen Not Detected (NotDetected); Tricyclic Screen Not Detected (NotDetected)
--- NOTE | 2020-10-26 17:53 | CT ---
CT BRAIN NONCONTRAST: DATE: 10/26/2020 HISTORY: 59-year-old male with altered mental status, lethargy, and dysarthria COMPARISON: 12/05/2018 FINDINGS: There is no evidence of acute intra-axial or extra-axial hemorrhage. There is no midline shift or any other mass effect. There is no extra-axial fluid collection. There is diffuse ventriculomegaly due to brain parenchymal volume loss. There is no evidence of obstructive hydrocephalus. Calvarium is int act. There is diffuse brain parenchymal volume loss. Old lacunar infarction in right basal ganglia involving right caudate head. Old lacunar infarction in the contralateral left basal ganglia. No interval change overall. IMPRESSION: 1) No acute intracranial findings. 2) bilateral basal ganglia old lacunar infarctions. 3) involutional changes.
[2020-10-26 18:49] LABS: Hep B Surf Ag Non-Reactive S/CO (NonReactive)
--- NOTE | 2020-10-26 19:06 | PDOC.CONS ---
- Consultation Encounter Date: 10/26/20 Encounter Time: 19:06 Reason for consultation: ESRD on hemodialysis Chief complaint: Altered mental status History of present illness: Patient is a 59-year-old male with past medical history of ESRD on hemodialysis, hypertension, history of mild cognitive disorder, history of stroke 4 years back, polyneuropathy, depression, GERD, anemia, bipolar disorder, previous history of smoking who was brought to the hospital by EMS for evaluation of altered mental status. As per the patient he felt "real tired","couldn't talk". Patient thought that his symptoms were secondary to his stroke 4 years back. Patient states that he has similar symptoms intermittently. He did not have fever or chills. He has cough for last 1 month and thinks he "congested". Patient received Narcan in the ER which improved his symptoms which improved mentation. Patient's baseline mentation is unknown. Patient gets hemodialysis on Tuesday, and Tuesday. His last dialysis was yesterday. He still has residual renal function and makes urine Past medical history: ESRD on hemodialysis, hypertension, mild cognitive disorder, history of CVA, polyneuropathy, depression, GERD, anemia, bipolar disorder and schizoaffective disorder,CAD Passage history: S/p aortobifemoral bypass graft, hip replacement in 2008, left upper extremity AV fistula placement, s/p cardiac cath and stent placement Social history: Patient quit smoking 2 years back. He does not abuse drugs or alcohol. Family history: Patient's mother had colon cancer and lung cancer. Review of systems Gen.: No fever, no chills All the 14 systems reviewed except for the ones mentioned above are negative Physical examination Blood pressure: 144/78 Pulse rate: 97/min Respiratory rate: 16/minute Oxygen saturation: 94% on room air Constitutional: comfortable, not in pain, currently eating dinner HEENT: Mucous membranes moist, no icterus Neck: Trachea midline, no lymphadenopathy Heart: Regular rate and rhythm; no murmurs Lungs: Air entry equal bilateral; no wheezes Abdomen: Soft; nontender; no guarding/tenderness/rebound Extremities: No calf tenderness; no ulcers, no bruises, left upper extremity fistula Neurological: Patient is awake, able to recall events, following commands Skin: No rash, no ulcers Psychological: Not agitated Labs and Imaging reviewed Laboratory Results - last 24 hr 10/26/20 10/26/20 10/26/20 15:03 15:03 15:03 WBC 12.6 H RBC 3.43 L Hgb 11.0 L Hct 33.0 L MCV 96.3 MCH 32.0 H MCHC 33.3 RDW 14.2 Plt Count 138 MPV 7.2 L Neutrophils % 76.6 H Lymphocytes % 7.1 L Monocytes % 7.8 Eosinophils % 8.0 Basophils % 0.4 Neutrophils # 9.7 H Lymphocytes # 0.9 L Monocytes # 1.0 H Eosinophils # 1.0 H Basophils # 0.0 Sodium 140 Potassium 5.5 H Chloride 99 Carbon Dioxide 31 H Anion Gap 16 BUN 42 H Creatinine 5.89 H Estimated GFR (MDRD) 10 Glucose 76 Calcium 8.8 Total Bilirubin 0.5 AST 29 ALT 28 Alkaline Phosphatase 118 H Ammonia 34 Serum Total Protein 7.6 Albumin 3.8 Globulin 3.8 H Albumin/Globulin Ratio 1.0 L Lipase 45 Urine Color Urine Clarity Urine pH Ur Specific [place] Urine Protein Urine Glucose (UA) Urine Ketones Urine Blood Urine Nitrite Urine Bilirubin Urine Urobilinogen Ur Leukocyte Esterase Urine RBC Urine WBC Ur Squamous Epith Cells Urine Bacteria Urine Sperm Salicylates Urine Opiates Screen Ur Oxycodone Screen Urine Methadone Screen Ur Propoxyphene Screen Acetaminophen Ur Barbiturates Screen Ur Tricyclics Screen Ur Phencyclidine Scrn Ur Amphetamines Screen U Methamphetamines Scrn U Benzodiazepines Scrn U Cocaine Metab Screen U Cannabinoids Screen Drug Screen Comment Plasma Alcohol Hep Bs Antigen 10/26/20 10/26/20 10/26/20 15:03 15:04 16:15 WBC RBC Hgb Hct MCV MCH MCHC RDW Plt Count MPV Neutrophils % Lymphocytes % Monocytes % Eosinophils % Basophils % Neutrophils # Lymphocytes # Monocytes # Eosinophils # Basophils # Sodium Potassium Chloride Carbon Dioxide Anion Gap BUN Creatinine Estimated GFR (MDRD) Glucose Calcium Total Bilirubin AST ALT Alkaline Phosphatase Ammonia Serum Total Protein Albumin Globulin Albumin/Globulin Ratio Lipase Urine Color Yellow Urine Clarity Clear Urine pH 8.5 Ur Specific [place] 1.020 Urine Protein 100 A Urine Glucose (UA) Negative Urine Ketones Negative Urine Blood Trace Urine Nitrite Negative Urine Bilirubin Negative Urine Urobilinogen 0.2 Ur Leukocyte Esterase Negative Urine RBC None Seen Urine WBC 0-3 Ur Squamous Epith Cells 0-3 Urine Bacteria 4+ A Urine Sperm Rare Salicylates Less than 8.0 L Urine Opiates Screen Ur Oxycodone Screen Urine Methadone Screen Ur Propoxyphene Screen Acetaminophen Less than 6.0 L Ur Barbiturates Screen Ur Tricyclics Screen Ur Phencyclidine Scrn Ur Amphetamines Screen U Methamphetamines Scrn U Benzodiazepines Scrn U Cocaine Metab Screen U Cannabinoids Screen Drug Screen Comment Plasma Alcohol Less than 10 Hep Bs Antigen Non-Reactive 10/26/20 16:15 WBC RBC Hgb Hct MCV MCH MCHC RDW Plt Count MPV Neutrophils % Lymphocytes % Monocytes % Eosinophils % Basophils % Neutrophils # Lymphocytes # Monocytes # Eosinophils # Basophils # Sodium Potassium Chloride Carbon Dioxide Anion Gap BUN Creatinine Estimated GFR (MDRD) Glucose Calcium Total Bilirubin AST ALT Alkaline Phosphatase Ammonia Serum Total Protein Albumin Globulin Albumin/Globulin Ratio Lipase Urine Color Urine Clarity Urine pH Ur Specific [place] Urine Protein Urine Glucose (UA) Urine Ketones Urine Blood Urine Nitrite Urine Bilirubin Urine Urobilinogen Ur Leukocyte Esterase Urine RBC Urine WBC Ur Squamous Epith Cells Urine Bacteria Urine Sperm Salicylates Urine Opiates Screen Not Detected Ur Oxycodone Screen Not Detected Urine Methadone Screen Not Detected Ur Propoxyphene Screen Not Detected Acetaminophen Ur Barbiturates Screen Not Detected Ur Tricyclics Screen Not Detected Ur Phencyclidine Scrn Not Detected Ur Amphetamines Screen Not Detected U Methamphetamines Scrn Not Detected U Benzodiazepines Scrn Not Detected U Cocaine Metab Screen Not Detected U Cannabinoids Screen Not Detected Drug Screen Comment Plasma Alcohol Hep Bs Antigen Assessment and plan ESRD on hemodialysis Hypertension Anemia Hyperkalemia Altered mental status Patient is baseline medications unknown. CT scan of the head negative for acute lesions. Patient scheduled for hemodialysis tonight. Full note to follow Thank you for allowing me to participate in the management of this pt
[2020-10-26] MEDS ORDERED: hydrALAZINE 20 MG/ML VIAL SLOW IVP PRN (19:28)
[2020-10-26] MEDS ORDERED: Acetaminophen 325 MG TAB PO PRN ×2 (19:28→19:30)
[2020-10-26] MEDS ORDERED: Ondansetron ODT 4 MG TAB SL PRN (19:30)
[2020-10-26] MEDS ORDERED: Ondansetron PF 4 MG/2 ML Vial IVP PRN (19:30)
[2020-10-26] MEDS ORDERED: CLOZAPINE 100 MG PO SCH (21:00)
[2020-10-26] MEDS ORDERED: Escitalopram Oxalate 10 mg Tablet PO SCH (21:00)
[2020-10-26] MEDS ORDERED: Linaclotide [Linzess] 290 MCG Capsule PO SCH (21:00)
[2020-10-26 21:32] VITALS: BMI 35.9
[2020-10-26] MEDS: Gabapentin 100 MG CAP PO SCH (21:32)
[2020-10-26] MEDS: Midodrine HCl 5 MG TAB PO SCH (21:34)
[2020-10-26] MEDS: Heparin 5,000 UNITS/ML VIAL SC SCH (21:38)
--- NOTE | 2020-10-26 21:39 | HP ---
CHIEF COMPLAINT: "I felt very weak and had trouble speaking last night." HISTORY OF PRESENT ILLNESS: The history of present illness is very limited as the patient is a poor historian and does not know all of the details related to coming to the hospital. He says that he was feeling very weak and he was having trouble speaking clearly last night. He says they told him he could not answer questions appropriately. This must have continued on into the morning and he was brought to the hospital for evaluation. He denies having any chest pain or shortness of breath. No nausea, no vomiting, no abdominal pain. No headache. He says he has had some cough and congestion, but he says that started about 2 years ago and has not changed significantly. He was able to tell me where he is. He was able to tell me the month. He told me that was the recent holiday, which happened. He was able to tell me that president Lupe is currently president and that he will be leaving office soon. He also was able to tell me the day of the week, being Tuesday and is completely oriented and awake. He does at times tend to kind of drift off, but is easily reoriented and focuses and is awake. The patient was suspected of having an opiate overdose during his stay in the hospital and was given a dose of Narcan and had given actually 3 doses. Apparently, this improved his symptoms and they were thinking of starting him on a Narcan drip. This has not yet been started and again, the patient is more or less awake and alert. When asked if he had any recent changes of any of his medications, he said, he is really not sure. [facility] in a prison and his medications are administered by the nursing staff. It was noted that he had a urine drug screen, which came back just recently, which was negative for any opiates. REVIEW OF SYSTEMS: All systems were reviewed and are negative except for that mentioned in the history of present illness. PAST MEDICAL HISTORY: Significant for end-stage renal disease, on hemodialysis; history of tubular adenoma; hypertension; polyneuropathy; depression; bipolar disorder; and schizophrenia. PAST SURGICAL HISTORY: He has had an aortofemoral bypass and chest tube placed for pneumothorax. ALLERGIES: HALDOL AND CYMBALTA. FAMILY HISTORY: His mother at age 62 due to colon cancer and also had history of lung cancer. Father at 87. His medical power of tax associate attorney is his brother, Ralph Bauer. SOCIAL HISTORY: He is a former smoker. No alcohol use. He is a resident at [facility]. MEDICATIONS: Were taken from the prison records and includes: 1. Tramadol 50 mg on Tuesday, , and Saturdays. 2. Linzess mcg p.o. daily. 3. Gabapentin 300 mg p.o. at bedtime and then 300 mg on Tuesday, Tuesday, Tuesday, Tuesday, and Tuesday. 4. He is on vitamin D 1000 units on Tuesday, Wednesdays, and Fridays, as well as Tuesday. 5. Renvela 800 mg 2 tablets 3 times a day. 6. Benztropine 0.5 mg daily. 7. Clonazepam 0.5 mg 3 times a day on Tuesday, Tuesday, Tuesday, and Tuesday. 8. Lexapro 10 mg q. day. 9. Clozaril 100 mg daily. 10. Protonix 40 mg daily. 11. Midodrine 10 mg as needed for low blood pressure. PHYSICAL EXAMINATION: GENERAL: Currently, he is alert and oriented x4. He appears to be in no acute distress. He is well developed and well nourished. VITAL SIGNS: Blood pressure 135/83, heart rate 83, respiratory rate of 16, temperature is 98.8. HEENT: His pupils are small, but they are reactive. His extraocular muscles are intact. Sclerae are anicteric. Throat, there is no erythema, no exudates. He did have an erythematous rash on the right face. He attributed to shaving. NECK: There was some mild jugular venous distention. There are no bruits. There was no adenopathy. LUNGS: Clear to auscultation. There is no wheezing, no rales, no rhonchi. CARDIOVASCULAR: He had a normal S1 and S2. I did not appreciate an S3 or S4. No murmurs, clicks, no rubs. ABDOMEN: Soft, nontender, nondistended. Positive for bowel sounds. No rebound. No guarding. EXTREMITIES: There is no edema. No calf tenderness. No joint effusions. NEUROLOGIC: His muscle strength was 5/5 in both his upper and lower extremities. There was no drift. He did have what seemed like some mild asterixis. He had some difficulty with the finger to nose, but no difficulty with heel, reyes. We did not stand the patient up. LABORATORY DATA: His urine drug screen or toxicology screen was negative. CBC: The white blood cell count 12.6, hemoglobin 11, hematocrit is 33, platelet count is 138. Sodium 140, potassium 5.5, chloride is 99, CO2 is 31, BUN of 42, creatinine 5.89, glucose is 76. DIAGNOSTIC DATA: He is getting a CT scan of the brain now. ASSESSMENT: 1. This is a 59-year-old gentleman, who presents to the emergency room with feeling weak, trouble speaking, drowsy, and lethargic. He appears to be encephalopathic. His urine drug screen was negative. However, he is on quite a few medications, which could cause drowsiness including the gabapentin, clonazepam, and potentially the benztropine and tramadol. I suspect that his symptoms are likely the result of polypharmacy, especially in the setting of a patient with end-stage renal disease. He will be placed in observation on telemetry. At this point, I think we can discontinue the Narcan drip or not started and monitor him on telemetry instead of the ICU. We will reduce the dose of gabapentin from 300 to 100. We do not want to stop it suddenly as this can prompt seizures. We will also hold off on any benzodiazepines at this time given his urine drug screen did not show that he is at least had any recently and tried to withhold any additional sedating medications. 2. End-stage renal disease, on hemodialysis. We will consult his senior benefits analyst for his maintenance hemodialysis. 3. Hypertension. His blood pressure was slightly elevated, but not in the range that we would consider having hypertensive encephalopathy. We will go ahead and restart his medications as well as p.r.n. medications as needed. 4. Bipolar disorder and schizoaffective disorder. We will continue his home medications for this. 5. We will need to follow up on the CT scan of the brain. However, his symptoms do not appear to be stroke-like, but more of a global encephalopathy and we will consider placing him on deep venous thrombosis as well as gastrointestinal prophylaxis. Job ID: [id number]
[2020-10-26] MEDS: Sodium Chloride 0.9% 1,000 ML IV SCH (23:50)
[2020-10-27 04:24] LABS: SARS-CoV-2 MS2 Positive; SARS-CoV-2 N Gene Negative; SARS-CoV-2 S Gene Negative; SARS-CoV-2 by NAA Not Detected (NotDetected); SARS-CoV-2 orf1ab Negative
[2020-10-27 05:44] LABS: #Eosinphils 1.3 thou/uL (0.0-0.7); #Monocytes 0.9 thou/uL (0.11-0.59); #Neutrophils 6.5 thou/uL (1.40-6.50); %Basophils 0.5 % (0.0-1.0); %Eosinophils 12.8 % (0.0-10.0); %Lymphocytes 10.5 % (21.0-51.0); %Monocytes 9.1 % (0.0-10.0); %Neutrophils 67.1 % (42.0-75.0); Hemoglobin 10.4 g/dL (14.0-18.0); Mean Corpuscular HGB CONC 32.5 g/dL (32.0-36.0); Mean Corpuscular Hemoglobin 30.9 pg (27.0-31.0); Mean Corpuscular Volume 95.3 fL (78.0-98.0); Mean Platelet Volume 7.3 fL (7.4-10.4); Platelet Count 146 thou/uL (130-400); RBC Distribution Width 14.2 % (11.5-14.5); Red Blood Cell (RBC) Count 3.37 mill/uL (4.70-6.10); White Blood Cell (WBC) Count 9.8 thou/uL (4.8-10.8)
[2020-10-27 06:05] LABS: Anion Gap 15 mmol/L (10-20); BUN (Urea Nitrogen) 27 mg/dL (8.4-25.7); Calc. Creatinine Clearance 32 mL/min (70-130); Calcium 8.5 mg/dL (7.8-10.44); Carbon Dioxide 29 mmol/L (22-29); Chloride 101 mmol/L (98-107); Glucose 70 mg/dL (70-105); Potassium 4.9 mmol/L (3.5-5.1); Sodium 140 mmol/L (136-145)
[2020-10-27] MEDS: Sodium Chloride 0.9% 1,000 ML IV SCH (06:22)
--- NOTE | 2020-10-27 07:15 | PDOC.HOSPP ---
- Subjective Encounter Date: 10/27/20 Encounter Time: 10:00 Subjective: Patient with cough for about 1 month. Noticed to cough with drinking liquids per speech therapy and going back for MBS. No more confusion. - Objective Vital Signs & Weight: Vital Signs (12 hours) Temp Pulse Resp BP Pulse Ox 10/27/20 04:00 98.0 F 80 16 137/88 98 10/26/20 19:36 97.8 F 85 18 148/80 H 97 Weight Weight 265 lb Result Diagrams: 10/27/20 05:05 10/27/20 05:05 Hospitalist ROS - Review of Systems Constitutional: denies: fever, chills Respiratory: reports: cough. denies: shortness of breath Cardiovascular: denies: chest pain, palpitations Gastrointestinal: denies: nausea, vomiting, abdominal pain - Medication Medications: Active Medications Generic Name Dose Route Start Last Admin Trade Name Freq PRN Reason Stop Dose Admin Escitalopram Oxalate 10 mg 10/26/20 21:00 10/26/20 21:32 Escitalopram Oxalate 10 Mg Tablet PO 10 mg HS JARROD Administration Gabapentin 100 mg 10/26/20 21:00 10/26/20 21:32 Gabapentin 100 Mg Cap PO 100 mg BID JARROD Administration Heparin Sodium (Porcine) 5,000 units 10/26/20 21:00 10/26/20 21:38 Heparin 5,000 Units/Ml Vial SC 5,000 units BID JARROD Administration Midodrine 10 mg 10/26/20 21:00 10/26/20 21:34 Midodrine Hcl 5 Mg Tab PO 10 mg BID JARROD Administration Sodium Chloride 10 ml 10/26/20 21:00 10/26/20 21:38 Flush - Normal Saline 10 Ml Syringe IVF 10 ml Q12HR JARROD Administration - Exam General Appearance: NAD, awake alert ENT: moist mucosa Heart: RRR, no murmur, no gallops, no rubs Respiratory: CTAB, no wheezes, no rales, no ronchi Gastrointestinal: soft, non-tender, non-distended, normal bowel sounds Extremities: no edema Psychiatric: normal affect, normal behavior, A&O x 3 Hosp A/P (1) Acute metabolic encephalopathy Code(s): G93.41 - METABOLIC ENCEPHALOPATHY Status: Resolved Plan: likely due to polypharmacy (2) ESRD (end stage renal disease) on dialysis Code(s): N18.6 - END STAGE RENAL DISEASE; Z99.2 - DEPENDENCE ON RENAL DIALYSIS Status: Chronic (3) Bipolar disorder Code(s): F31.9 - BIPOLAR DISORDER, UNSPECIFIED Status: Chronic (4) Hypertension Code(s): I10 - ESSENTIAL (PRIMARY) HYPERTENSION Status: Chronic (5) Anemia of renal disease Code(s): D63.1 - ANEMIA IN CHRONIC KIDNEY DISEASE Status: Chronic - Plan Patient improved last night after dialysis. Gabapentin dose decreased for his polyneuropathy. Getting MBS. Will also check CXR and start antibiotic if any infiltrate seen. If stable today can discharge back to long term.
[2020-10-27] MEDS ORDERED: traMADol HCl 50 MG TAB PO PRN (07:16)
[2020-10-27] MEDS ORDERED: Polyethylene Glycol 3350 17 GM Packet PO SCH (09:00)
[2020-10-27] MEDS ORDERED: Aspirin 81 mg Enteric Coated Tablet PO SCH (09:00)
[2020-10-27] MEDS: Heparin 5,000 UNITS/ML VIAL SC SCH (09:05)
[2020-10-27] MEDS: Sevelamer Carbonate 800 MG TAB PO SCH ×2 (10:18→15:00)
[2020-10-27] MEDS: Gabapentin 100 MG CAP PO SCH (10:20)
[2020-10-27] MEDS: Midodrine HCl 5 MG TAB PO SCH (10:21)
[2020-10-27] MEDS ORDERED: Guaifenesin DM 100-10/5 ML UDCUP PO PRN (10:30)
--- NOTE | 2020-10-27 11:35 | RAD ---
Modified barium swallow HISTORY: Dysphagia. Feeding difficulties. FINDINGS: Exam was performed in conjunction with speech pathology with multiple consistencies. Video review is available and demonstrates good bolus formation and retropulsion. In general, very small amount of residue was present. With the initial straw thin liquid drinks, deep penetration was seen w ith eventual aspiration of residue. Good clearance upon secondary swallowing. The esophagus below the level of the hypopharynx was not evaluated. Please see separate detailed repo rt from speech pathology.
[2020-10-27 11:43] VITALS: BP 147/86; TEMP 98
--- NOTE | 2020-10-27 12:21 | RAD ---
Portable frontal chest radiograph: 10/27/2020 COMPARISON: 09/03/2020 HISTORY: Cough, possible aspiration FINDINGS: Heart and mediastinal contours are stable. Stent material is seen in the left subclavian re gion. There is a right shoulder anchor. Stent material overlies the superior mediastinum. No focal consolidation or alveolar edema. IMPRESSION: No focal consolidation or alveolar edema.
[2020-10-27] MEDS ORDERED: Albuterol Sulfate 2.5 mg/3 ml Neb NEB SCH (19:00)
[2020-10-27] MEDS ORDERED: Rosuvastatin 20 MG TAB PO SCH (21:00)
[2020-10-27] MEDS ORDERED: Docusate 100 MG CAP PO SCH (21:00)
[2020-10-27] MEDS ORDERED: Aripiprazole 15 MG TAB PO SCH (21:00)
[2020-10-27] MEDS ORDERED: Melatonin 3 MG TAB PO SCH (21:00)
--- NOTE | 2020-10-28 08:11 | DIS ---
DATE OF ADMISSION: 10/26/2020 DATE OF DISCHARGE: 10/27/2020 PRIMARY CARE PHYSICIAN: Isiah Black. REASON FOR ADMISSION: Altered mental status. DIAGNOSES AT DISCHARGE: 1. Acute metabolic encephalopathy secondary to polypharmacy, resolved. 2. End-stage renal disease, on dialysis. 3. Bipolar disorder. 4. Hypertension. 5. Anemia of renal disease. PROCEDURES: Modified barium swallow showing aspiration with thin liquids by straw. CONSULTATIONS: Nephrology, Dr. Gardiner. SUMMARY OF HOSPITAL COURSE: This is a 59-year-old [facility] resident, poor historian. He reportedly was very weak and having trouble speaking the night before admission, could not answer questions appropriately. Eventually, he was sent to the emergency room. There, he improved with some Narcan in spite of not having any opiates in his urine or on his MAR. The patient was admitted to the hospital. His gabapentin was decreased from 300 three times a day to 100 twice a day. He also had clonazepam on his MAR from the [facility]; however, he had none in his urine, so this was held as well. The patient cleared by the next day. He was alert and oriented x3. The patient did have report of cough for the last month, was noted to cough while drinking fluids. Speech therapy was consulted and evaluated and they did a modified barium swallow and found that he was aspirating on thin liquids and his diet was changed. He did have a chest x-ray to make sure he did not have any pneumonia from the aspiration and the chest x-ray was clear and he had a normal white blood cell count and no fever or hypoxia. He is being [facility] the [facility]. DISCHARGE MANAGEMENT: Discharged back to [facility]. ACTIVITY: As tolerated. DIET: Renal high-protein diet with NDD3 chopped texture solids, extra sauce and gravy and nectar thick liquids by sip. No straws. THERAPY: Speech therapy. He is to continue dialysis from the [facility]. FOLLOWUP: Follow up with his primary care doctor in the next week. DISCHARGE MEDICATIONS: 1. Albuterol as needed. 2. Abilify 30 mg at night. 3. Aspirin 81 mg 3 times a week. 4. Benztropine mesylate 0.5 mg daily. 5. Vitamin D3 2000 units daily. 6. Docusate sodium 100 mg twice a day. 7. Lexapro 10 mg at night. 8. Gabapentin 100 mg twice a day. 9. DuoNeb as needed. 10. Melatonin 5 mg at night. 11. Guaifenesin DM as needed for cough. 12. Midodrine 10 mg 3 times a day, hold for blood pressure greater than 160/100, give prior to dialysis. 13. Protonix 40 mg daily. 14. MiraLAX 17 g daily. 15. Crestor 20 mg at night. 16. Renvela 800 mg 2 tablets three times a day. 17. Tramadol as needed for pain. 18. Clozapine 100 mg at night. 19. Linaclotide 290 mcg at night. The patient is to discontinue his old gabapentin dose and his clonazepam. TIME SPENT: Arranging the details of this discharge took 35 minutes. Job ID: [id number]
[2020-10-28] MEDS ORDERED: Benztropine 1 MG TAB PO SCH (09:00)
[2020-10-28] MEDS ORDERED: Cholecalciferol 1,000 UNITS (25 MCG) TAB PO SCH (09:00)
== END 2020-10-27 15:55 ==
LOC: ERS 14:36 → INTOOBSV 17:06 → 2SE 17:06
PROVIDERS: ADMIT Family Medicine; ATTEND Emergency Medicine
DX: G92 Toxic encephalopathy (principal); T42.6X5A Adverse effect of other antiepileptic and sedative-hypnotic drugs, initial encounter; T42.4X5A Adverse effect of benzodiazepines, initial encounter; I12.0 Hypertensive chronic kidney disease with stage 5 chronic kidney disease or end stage renal disease; N18.6 End stage renal disease; D63.1 Anemia in chronic kidney disease; F31.9 Bipolar disorder, unspecified; F20.9 Schizophrenia, unspecified; E87.5 Hyperkalemia; Z20.828 Contact with and (suspected) exposure to other viral communicable diseases; Z79.82 Long term (current) use of aspirin; Z79.899 Other long term (current) drug therapy; Z87.891 Personal history of nicotine dependence; Z88.8 Allergy status to other drugs, medicaments and biological substances; Z91.018 Allergy to other foods; Z99.2 Dependence on renal dialysis
CPT/HCPCS: 51701; 70450; 71045; 74230; 80048; 80053; 80306; 80307; 82140; 83690; 85025 ×2; 87340; 93005; 94760; 96374; 96376; 97139 ×2; 97535; 99285; U0003; 36415; 81003; 81015; 87635; 90935; 96372; G0257; G0378; J1644; J2310; J7030

== ENCOUNTER 2022-04-04 13:41 | Emergency (ER) | payer OTHER, MEDICARE, MEDICAID | END 2022-04-04 15:30 | disposition home or self-care (01) | LOC: ERS 13:41 | DX: S00.03XA Contusion of scalp, initial encounter (principal); S09.90XA Unspecified injury of head, initial encounter; S80.211A Abrasion, right knee, initial encounter; E78.00 Pure hypercholesterolemia, unspecified; E78.5 Hyperlipidemia, unspecified; Z86.73 Personal history of transient ischemic attack (TIA), and cerebral infarction without residual deficits; Z87.891 Personal history of nicotine dependence; W01.0XXA Fall on same level from slipping, tripping and stumbling without subsequent striking against object, initial encounter; Z79.899 Other long term (current) drug therapy; Z79.82 Long term (current) use of aspirin | CPT/HCPCS: 70450 ==

== ENCOUNTER 2022-09-02 18:48 | Emergency (ER) | payer MEDICARE, OTHER ==
[2022-09-02 19:29] LABS: #Basophils 0.1 thou/uL (0.0-0.2); #Eosinphils 0.5 thou/uL (0.0-0.7); #Lymphocytes 0.8 thou/uL (1.20-3.40); #Monocytes 0.7 thou/uL (0.11-0.59); #Neutrophils 6.2 thou/uL (1.40-6.50); %Basophils 0.6 % (0.0-1.0); %Eosinophils 6.2 % (0.0-10.0); %Lymphocytes 9.7 % (21.0-51.0); %Monocytes 8.7 % (0.0-10.0); %Neutrophils 74.8 % (42.0-75.0); Hemoglobin 7.8 g/dL (14.0-18.0); Mean Corpuscular Hemoglobin 33.5 pg (27.0-31.0); Mean Platelet Volume 6.6 fL (7.4-10.4); Platelet Count 164 thou/uL (130-400); RBC Distribution Width 13.5 % (11.5-14.5); Red Blood Cell (RBC) Count 2.32 mill/uL (4.70-6.10); White Blood Cell (WBC) Count 8.3 thou/uL (4.8-10.8)
[2022-09-02 19:50] LABS: ALT (SGPT) 22 U/L (8-55); AST (SGOT) 27 U/L (5-34); Albumin 3.6 g/dL (3.4-4.8); Alkaline Phosphatase 150 U/L (40-110); Anion Gap 12 mmol/L (10-20); BUN (Urea Nitrogen) 23 mg/dL (8.4-25.7); Bilirubin, Total 0.7 mg/dL (0.2-1.2); Calc. Creatinine Clearance 0 mL/min (70-130); Calcium 8.7 mg/dL (7.8-10.44); Carbon Dioxide 29 mmol/L (23-31); Chloride 102 mmol/L (98-107); Estimated GFR 13; Globulin 3.3 g/dL (2.4-3.5); Glucose 136 mg/dL (80-115); Potassium 4.1 mmol/L (3.5-5.1); Protein, Total 6.9 g/dL (5.8-8.1); Sodium 139 mmol/L (136-145)
== END 2022-09-02 22:12 ==
LOC: ERS 18:48
DX: D64.9 Anemia, unspecified (principal); E78.00 Pure hypercholesterolemia, unspecified; I10 Essential (primary) hypertension; Z87.891 Personal history of nicotine dependence
CPT/HCPCS: 36415; 80053; 85025; 99284

== ENCOUNTER → 2023-03-02 | Day surgery (SDC) | payer MEDICARE, MEDICAID | END | disposition home or self-care (01) | LOC: ENDO/OP 13:05 | PROVIDERS: ATTEND Physician Assistant Medical | DX: R13.10 Dysphagia, unspecified (principal); Z88.8 Allergy status to other drugs, medicaments and biological substances; Z91.018 Allergy to other foods | CPT/HCPCS: 91010 ==

== ENCOUNTER 2023-09-20 17:50 | Emergency (ER) | payer MEDICARE, MEDICAID ==
[2023-09-20 18:50] LABS: #Basophils 0.1 thou/uL (0.0-0.2); #Eosinphils 0.7 thou/uL (0.0-0.7); #Monocytes 0.8 thou/uL (0.11-0.59); #Neutrophils 5.5 thou/uL (1.40-6.50); %Basophils 0.6 % (0.0-1.0); %Eosinophils 8.9 % (0.0-10.0); %Lymphocytes 9.8 % (21.0-51.0); %Monocytes 10.2 % (0.0-10.0); %Neutrophils 70.2 % (42.0-75.0); Hematocrit 30.2 % (42.0-52.0); Hemoglobin 9.8 g/dL (14.0-18.0); Mean Corpuscular HGB CONC 32.5 g/dL (32.0-36.0); Mean Corpuscular Hemoglobin 33.2 pg (27.0-31.0); Mean Corpuscular Volume 102.4 fl (78.0-98.0); Mean Platelet Volume 9.8 fL (7.4-10.4); Platelet Count 131 10x3/uL (130-400); RBC Distribution Width 13.6 % (11.5-14.5); Red Blood Cell (RBC) Count 2.95 mill/uL (4.70-6.10); White Blood Cell (WBC) Count 7.8 10x3/uL (4.8-10.8)
[2023-09-20 19:11] LABS: Actual Bicarbonate (HCO3v) 26.9 mEq/L (22-28); Base Excess 2.4 mEq/L (-2.0 to +3.0); Calcium, Ionized (venous) 0.98 mmol/L (1.16-1.32); Chloride (VBG) 98 mmol/L (98-106); Hematocrit-VBG 31 % (42.0-52.0); Hemoglobin (Hb) 10.6 g/dL (13.1-17.2); Potassium (VBG) 4.15 mmol/L (3.70-5.30); Sodium 137 mmol/L (133-146); pH (venous) 7.431 (7.32-7.43)
[2023-09-20 19:12] LABS: Phosphorus 3.2 mg/dL (2.3-4.7)
[2023-09-20 19:14] LABS: Acetaminophen Less than 10 mcg/mL (10.0-30.0); Alcohol Less than 10.0 mg/dL (Less than 10); Salicylate Less than 8.0 mg/dL (15.0-30.0)
[2023-09-20 19:15] LABS: ALT (SGPT) 29 U/L (8-55); AST (SGOT) 39 U/L (5-34); Albumin 3.5 g/dL (3.4-4.8); Alkaline Phosphatase 109 U/L (40-110); Anion Gap 17 mmol/L (10-20); BUN (Urea Nitrogen) 48 mg/dL (8.4-25.7); Bilirubin, Total 0.6 mg/dL (0.2-1.2); Calc. Creatinine Clearance 0 mL/min (70-130); Calcium 8.7 mg/dL (7.8-10.44); Carbon Dioxide 27 mmol/L (23-31); Chloride 97 mmol/L (98-107); Estimated GFR 5; Globulin 3.3 g/dL (2.4-3.5); Glucose 72 mg/dL (80-115); Potassium 4.2 mmol/L (3.5-5.1); Protein, Total 6.8 g/dL (5.8-8.1); Sodium 137 mmol/L (136-145)
[2023-09-20 19:18] LABS: Troponin I 0.028 ng/mL (< 0.028)
[2023-09-20 20:00] LABS: Bacteria/HPF None Seen HPF (None Seen); Bilirubin Negative (Negative); Blood, Urine 2+ (Negative); CAUTI Indications for Culture Alt mental st,lethar; Clarity Clear (Clear); Glucose, Urine (Dipstick) Normal (Negative); Ketone, Urine Negative (Negative); Leukocyte Negative Leu/uL (Negative); Nitrite Negative (Negative); Protein, Urine (Dipstick) 100 mg/dL (Neg-Trace); Specific Gravity, Urine 1.011 (1.002-1.036); Squamous Epithelial None Seen HPF (0-3); Urobilinogen Normal mg/dL (Less than 2); WBC/HPF 0-3 HPF (0-3)
[2023-09-20 20:01] LABS: Amphetamine Not Detected (NotDetected); Barbiturates Screen Not Detected (NotDetected); Benzodiazepine Screen Not Detected (NotDetected); Cocaine Metabolite Screen Not Detected (NotDetected); Methadone Not Detected (NotDetected); Methamphetamine Not Detected (NotDetected); Opiate Screen Not Detected (NotDetected); Oxycodone Screen Not Detected (NotDetected); Phencyclidine (PCP) Not Detected (NotDetected); Sperm/HPF Rare HPF (None Seen); THC/Cannabinoid Screen Not Detected (NotDetected); Tricyclic Screen Not Detected (NotDetected)
[2023-09-20 20:03] LABS: Urine Culture Reflex No No
== END 2023-09-20 22:45 ==
LOC: ERS 17:50
DX: R53.1 Weakness (principal); I12.0 Hypertensive chronic kidney disease with stage 5 chronic kidney disease or end stage renal disease; N18.6 End stage renal disease; E78.5 Hyperlipidemia, unspecified; J44.9 Chronic obstructive pulmonary disease, unspecified; Z87.891 Personal history of nicotine dependence; Z79.899 Other long term (current) drug therapy; Z99.2 Dependence on renal dialysis; Z79.82 Long term (current) use of aspirin
CPT/HCPCS: 36415; 36416; 51701; 71045; 80053; 80306; 80307; 81001; 82805; 83735; 84100; 84443; 84484; 85025; 93005

== ENCOUNTER 2023-11-09 18:58 | Emergency (ER) | payer MEDICARE, MEDICAID, OTHER ==
[2023-11-09 20:17] LABS: #Basophils 0.2 thou/uL (0.0-0.2); #Eosinphils 0.7 thou/uL (0.0-0.7); #Monocytes 1.2 thou/uL (0.11-0.59); #Neutrophils 5.3 thou/uL (1.40-6.50); %Basophils 1.9 % (0.0-1.0); %Eosinophils 7.8 % (0.0-10.0); %Lymphocytes 13.2 % (21.0-51.0); %Neutrophils 62.7 % (42.0-75.0); Hematocrit 34.8 % (42.0-52.0); Mean Corpuscular HGB CONC 31.6 g/dL (32.0-36.0); Mean Corpuscular Hemoglobin 32.5 pg (27.0-31.0); Platelet Count 148 10x3/uL (130-400); RBC Distribution Width 14.5 % (11.5-14.5); Red Blood Cell (RBC) Count 3.38 mill/uL (4.70-6.10); White Blood Cell (WBC) Count 8.4 10x3/uL (4.8-10.8)
[2023-11-09 20:40] LABS: ALT (SGPT) 23 U/L (8-55); AST (SGOT) 34 U/L (5-34); Alkaline Phosphatase 128 U/L (40-110); Anion Gap 16 mmol/L (10-20); BUN (Urea Nitrogen) 41 mg/dL (8.4-25.7); Bilirubin, Total 0.6 mg/dL (0.2-1.2); Calc. Creatinine Clearance 0 mL/min (70-130); Calcium 9.4 mg/dL (7.8-10.44); Carbon Dioxide 30 mmol/L (23-31); Chloride 98 mmol/L (98-107); Estimated GFR 7; Globulin 3.7 g/dL (2.4-3.5); Glucose 76 mg/dL (80-115); Potassium 4.9 mmol/L (3.5-5.1); Protein, Total 7.7 g/dL (5.8-8.1); Sodium 139 mmol/L (136-145)
[2023-11-09] MEDS ORDERED: Lidocaine 1% PF 5 ML VIAL ONE (20:44)
== END 2023-11-09 22:50 | disposition home or self-care (01) ==
LOC: ERS 18:58
DX: S01.311A Laceration without foreign body of right ear, initial encounter (principal); S70.01XA Contusion of right hip, initial encounter; S09.90XA Unspecified injury of head, initial encounter; J44.9 Chronic obstructive pulmonary disease, unspecified; I12.0 Hypertensive chronic kidney disease with stage 5 chronic kidney disease or end stage renal disease; N18.6 End stage renal disease; Z99.2 Dependence on renal dialysis; Z87.891 Personal history of nicotine dependence; W06.XXXA Fall from bed, initial encounter
CPT/HCPCS: 12011; 36415; 70450; 70486; 71045; 72125; 72192; 80053; 85025; 96372

== ENCOUNTER 2023-12-10 04:53 | Emergency (ER) | payer MEDICARE, OTHER ==
[2023-12-10] MEDS ORDERED: Lidocaine 1% w/Epinephrine 1:100K 20 ML VIAL ONE (06:28)
[2023-12-10 07:03] LABS: #Basophils 0.1 thou/uL (0.0-0.2); #Neutrophils 8.2 thou/uL (1.40-6.50); %Eosinophils 8.5 % (0.0-10.0); %Lymphocytes 8.8 % (21.0-51.0); %Monocytes 8.9 % (0.0-10.0); %Neutrophils 72.5 % (42.0-75.0); Hematocrit 32.8 % (42.0-52.0); Hemoglobin 10.6 g/dL (14.0-18.0); Mean Corpuscular HGB CONC 32.3 g/dL (32.0-36.0); Mean Corpuscular Volume 102.2 fl (78.0-98.0); Mean Platelet Volume 9.8 fL (7.4-10.4); Platelet Count 134 10x3/uL (130-400); RBC Distribution Width 14.5 % (11.5-14.5); Red Blood Cell (RBC) Count 3.21 mill/uL (4.70-6.10); White Blood Cell (WBC) Count 11.2 10x3/uL (4.8-10.8)
[2023-12-10 07:26] LABS: ALT (SGPT) 24 U/L (8-55); AST (SGOT) 34 U/L (5-34); Albumin 3.9 g/dL (3.4-4.8); Alkaline Phosphatase 144 U/L (40-110); Anion Gap 17 mmol/L (10-20); BUN (Urea Nitrogen) 67 mg/dL (8.4-25.7); Bilirubin, Total 0.7 mg/dL (0.2-1.2); Calc. Creatinine Clearance 0 mL/min (70-130); Calcium 9.4 mg/dL (7.8-10.44); Carbon Dioxide 29 mmol/L (23-31); Chloride 97 mmol/L (98-107); Estimated GFR 6; Globulin 3.8 g/dL (2.4-3.5); Glucose 106 mg/dL (80-115); Potassium 4.9 mmol/L (3.5-5.1); Protein, Total 7.7 g/dL (5.8-8.1); Sodium 138 mmol/L (136-145)
== END 2023-12-10 08:48 ==
LOC: ERS 04:53
DX: T82.838A Hemorrhage due to vascular prosthetic devices, implants and grafts, initial encounter (principal); J44.9 Chronic obstructive pulmonary disease, unspecified; I12.0 Hypertensive chronic kidney disease with stage 5 chronic kidney disease or end stage renal disease; N18.6 End stage renal disease; E78.00 Pure hypercholesterolemia, unspecified; G20.C Parkinsonism, unspecified; Z99.2 Dependence on renal dialysis; Z86.73 Personal history of transient ischemic attack (TIA), and cerebral infarction without residual deficits; Z87.891 Personal history of nicotine dependence
CPT/HCPCS: 36415; 80053; 85025; 93005

== ENCOUNTER 2024-06-20 15:53 | Emergency (ER) | payer MEDICARE, MEDICAID ==
[2024-06-20 17:17] LABS: %Lymphocytes 6.2 % (21.0-51.0); %Monocytes 10.8 % (0.0-10.0); %Neutrophils 76.7 % (42.0-75.0); Hematocrit 37.9 % (42.0-52.0); Hemoglobin 12.2 g/dL (14.0-18.0); Mean Corpuscular HGB CONC 32.2 g/dL (32.0-36.0); Mean Corpuscular Hemoglobin 30.9 pg (27.0-31.0); Mean Corpuscular Volume 95.9 fL (78.0-98.0); Mean Platelet Volume 10.4 fL (7.4-10.4); Platelet Count 131 10x3/uL (130-400); RBC Distribution Width 15.9 % (11.5-14.5); Red Blood Cell (RBC) Count 3.95 mill/uL (4.70-6.10)
[2024-06-20 17:21] LABS: ALT (SGPT) 23 U/L (8-55); AST (SGOT) 33 U/L (5-34); Acetaminophen Less than 10 mcg/mL (Less than 10); Albumin 3.3 g/dL (3.4-4.8); Alcohol Less than 10.0 mg/dL (Less than 10); Alkaline Phosphatase 123 U/L (40-110); Anion Gap 21 mmol/L (10-20); BUN (Urea Nitrogen) 46 mg/dL (8.4-25.7); Bilirubin, Total 0.8 mg/dL (0.2-1.2); CK (CPK) 127 U/L (30-200); Calc. Creatinine Clearance 0 mL/min (70-130); Calcium 9.5 mg/dL (7.8-10.44); Carbon Dioxide 24 mmol/L (23-31); Chloride 101 mmol/L (98-107); Estimated GFR 6; Globulin 3.9 g/dL (2.4-3.5); Glucose 145 mg/dL (80-115); Lipase 26 U/L (8-78); Potassium 4.9 mmol/L (3.5-5.1); Protein, Total 7.2 g/dL (5.8-8.1); Salicylate Less than 8.0 mg/dL (Less than 8.0); Sodium 141 mmol/L (136-145)
[2024-06-20 17:26] LABS: Troponin I 0.032 ng/mL (< 0.028)
[2024-06-20 18:11] LABS: Bilirubin Negative (Negative); Blood, Urine 1+ (Negative); CAUTI Indications for Culture Alt mental st,lethar; Clarity Clear (Clear); Glucose, Urine (Dipstick) Normal (Negative); Ketone, Urine Negative (Negative); Leukocyte 75 Leu/uL (Negative); Nitrite Negative (Negative); Protein, Urine (Dipstick) 200 mg/dL (Neg-Trace); RBC/HPF 0-3 HPF (0-3); Specific Gravity, Urine 1.012 (1.002-1.036); Squamous Epithelial None Seen HPF (0-3); Urobilinogen Normal mg/dL (Less than 2); WBC/HPF 21-50 HPF (0-3)
[2024-06-20 18:12] LABS: Amphetamine Not Detected (NotDetected); Barbiturates Screen Not Detected (NotDetected); Benzodiazepine Screen Not Detected (NotDetected); Cocaine Metabolite Screen Not Detected (NotDetected); Methadone Not Detected (NotDetected); Methamphetamine Not Detected (NotDetected); Opiate Screen Not Detected (NotDetected); Oxycodone Screen Not Detected (NotDetected); Phencyclidine (PCP) Not Detected (NotDetected); THC/Cannabinoid Screen Not Detected (NotDetected); Tricyclic Screen Not Detected (NotDetected)
[2024-06-20 18:13] LABS: Bacteria/HPF 1+ HPF (None Seen)
[2024-06-20 18:14] LABS: Urine Culture Reflex Yes Yes
[2024-06-20 18:32] LABS: SARS-CoV-2 E Target Negative; SARS-CoV-2 N2 Target Negative; SARS-CoV-2 NAA Rapid Test Not Detected (NotDetected); SARS-CoV-2 RdRP gene Negative
[2024-06-20] MEDS ORDERED: Sodium Chloride 0.9% 100 ML ONE (19:37)
[2024-06-20 20:23] LABS: Lactic Acid 1.4 mmol/L (0.5-2.2)
== END 2024-06-20 21:44 ==
LOC: ERS 15:53
DX: N39.0 Urinary tract infection, site not specified (principal); I12.0 Hypertensive chronic kidney disease with stage 5 chronic kidney disease or end stage renal disease; N18.6 End stage renal disease; Z99.2 Dependence on renal dialysis; Z87.891 Personal history of nicotine dependence; R41.82 Altered mental status, unspecified
CPT/HCPCS: 70450; 71045; 80306; 80307; 81001; 82140; 82550; 83605; 83690; 83880; 84484; 87040; 87086; 93005; 96365; 99285; U0002; 36415; 36416; 80053; 84443; 85025

== ENCOUNTER 2024-08-09 16:56 | Emergency (ER) | payer MEDICARE, OTHER ==
[2024-08-09 17:58] LABS: #Basophils 0.12 10x3/uL (0.0-0.2); %Basophils 1.3 % (0.0-1.0); %Eosinophils 8.2 % (0.0-10.0); %Monocytes 12.2 % (0.0-10.0); %Neutrophils 66.9 % (42.0-75.0); Hematocrit 38.7 % (42.0-52.0); Hemoglobin 12.3 g/dL (14.0-18.0); Mean Corpuscular HGB CONC 31.8 g/dL (32.0-36.0); Mean Corpuscular Hemoglobin 31.4 pg (27.0-31.0); Mean Corpuscular Volume 98.7 fL (78.0-98.0); Mean Platelet Volume 9.6 fL (7.4-10.4); Platelet Count 183 10x3/uL (130-400); RBC Distribution Width 16.7 % (11.5-14.5); Red Blood Cell (RBC) Count 3.92 mill/uL (4.70-6.10)
[2024-08-09 18:11] LABS: INR-International Normal Ratio 1.1; PTT 30.2 sec (22.9-36.1); Prothrombin Time 13.9 sec (12.0-14.7)
[2024-08-09 18:27] LABS: ALT (SGPT) 31 U/L (8-55); AST (SGOT) 40 U/L (5-34); Albumin 3.2 g/dL (3.4-4.8); Alkaline Phosphatase 152 U/L (40-110); Anion Gap 18 mmol/L (10-20); BUN (Urea Nitrogen) 38 mg/dL (8.4-25.7); Bilirubin, Total 0.5 mg/dL (0.2-1.2); Calc. Creatinine Clearance 0 mL/min (70-130); Calcium 9.2 mg/dL (7.8-10.44); Carbon Dioxide 22 mmol/L (23-31); Chloride 104 mmol/L (98-107); Estimated GFR 9; Glucose 104 mg/dL (80-115); Potassium 4.2 mmol/L (3.5-5.1); Protein, Total 7.2 g/dL (5.8-8.1); Sodium 140 mmol/L (136-145)
== END 2024-08-09 19:15 | disposition home or self-care (01) ==
LOC: ERS 16:56
DX: T82.838A Hemorrhage due to vascular prosthetic devices, implants and grafts, initial encounter (principal); Z79.899 Other long term (current) drug therapy; J44.9 Chronic obstructive pulmonary disease, unspecified; I12.0 Hypertensive chronic kidney disease with stage 5 chronic kidney disease or end stage renal disease; N18.6 End stage renal disease; E78.00 Pure hypercholesterolemia, unspecified; K21.9 Gastro-esophageal reflux disease without esophagitis; Z87.891 Personal history of nicotine dependence
CPT/HCPCS: 36415; 80053; 85025; 85610; 85730; 99284

== ENCOUNTER 2024-10-25 05:25 | Inpatient (IN) | payer MEDICARE, MEDICAID ==
[2024-10-25 06:08] LABS: #Basophils Less than 0.03 10x3/uL (0.0-0.2); %Basophils 0.2 % (0.0-1.0); %Eosinophils 0.9 % (0.0-10.0); %Lymphocytes 5.5 % (21.0-51.0); %Monocytes 10.7 % (0.0-10.0); %Neutrophils 82.1 % (42.0-75.0); Hematocrit 29.1 % (42.0-52.0); Hemoglobin 9.7 g/dL (14.0-18.0); Mean Corpuscular HGB CONC 33.3 g/dL (32.0-36.0); Mean Corpuscular Hemoglobin 31.8 pg (27.0-31.0); Mean Corpuscular Volume 95.4 fL (78.0-98.0); Mean Platelet Volume 10.1 fL (7.4-10.4); Platelet Count 118 10x3/uL (130-400); RBC Distribution Width 15.9 % (11.5-14.5); Red Blood Cell (RBC) Count 3.05 mill/uL (4.70-6.10)
[2024-10-25 06:16] LABS: Acetaminophen Less than 10 mcg/mL (Less than 10); Alcohol Less than 10.0 mg/dL (Less than 10); Salicylate Less than 8.0 mg/dL (Less than 8.0)
[2024-10-25 06:17] LABS: ALT (SGPT) 42 U/L (8-55); AST (SGOT) 86 U/L (5-34); Albumin 2.8 g/dL (3.4-4.8); Alkaline Phosphatase 90 U/L (40-110); Anion Gap 24 mmol/L (10-20); BUN (Urea Nitrogen) 87 mg/dL (8.4-25.7); Bilirubin, Total 0.5 mg/dL (0.2-1.2); Calc. Creatinine Clearance 0 mL/min (70-130); Carbon Dioxide 20 mmol/L (23-31); Chloride 100 mmol/L (98-107); Estimated GFR 5; Globulin 3.6 g/dL (2.4-3.5); Glucose 112 mg/dL (80-115); Potassium 4.6 mmol/L (3.5-5.1); Protein, Total 6.4 g/dL (5.8-8.1); Sodium 139 mmol/L (136-145)
[2024-10-25 06:19] LABS: Bacteria/HPF None Seen HPF (None Seen); Bilirubin Negative (Negative); Blood, Urine 1+ (Negative); CAUTI Indications for Culture Alt mental st,lethar; Clarity Clear (Clear); Glucose, Urine (Dipstick) Normal (Negative); Ketone, Urine Negative (Negative); Leukocyte Negative Leu/uL (Negative); Nitrite Negative (Negative); Protein, Urine (Dipstick) 100 mg/dL (Neg-Trace); RBC/HPF 0-3 HPF (0-3); Specific Gravity, Urine 1.013 (1.002-1.036); Squamous Epithelial None Seen HPF (0-3); Urobilinogen Normal mg/dL (Less than 2); WBC/HPF 0-3 HPF (0-3)
[2024-10-25 06:21] LABS: Urine Culture Reflex No No
[2024-10-25 06:28] LABS: Amphetamine Not Detected (NotDetected); Barbiturates Screen Not Detected (NotDetected); Benzodiazepine Screen Not Detected (NotDetected); Cocaine Metabolite Screen Not Detected (NotDetected); Methadone Not Detected (NotDetected); Methamphetamine Not Detected (NotDetected); Opiate Screen Not Detected (NotDetected); Oxycodone Screen Not Detected (NotDetected); Phencyclidine (PCP) Not Detected (NotDetected); THC/Cannabinoid Screen Not Detected (NotDetected); Tricyclic Screen Not Detected (NotDetected)
[2024-10-25 06:28] LABS: Troponin I 0.324 ng/mL (< 0.028)
[2024-10-25] MEDS ORDERED: Sodium Chloride 0.9% 100 ML ONE (06:40)
[2024-10-25] MEDS ORDERED: Cefepime 2 GM VIAL ONE (06:40)
[2024-10-25 06:59] LABS: Actual Bicarbonate (HCO3v) 23.5 mEq/L (22-28); Base Excess -0.2 mEq/L (-2.0 to +3.0); Calcium, Ionized (venous) 0.93 mmol/L (1.16-1.32); Chloride (VBG) 101 mmol/L (98-106); Hematocrit-VBG 31 % (42.0-52.0); Hemoglobin (Hb) 10.4 g/dL (13.1-17.2); Potassium (VBG) 3.67 mmol/L (3.70-5.30); Sodium 137 mmol/L (133-146); pH (venous) 7.449 (7.32-7.43)
[2024-10-25] MEDS ORDERED: Acetaminophen 325 MG TAB PO PRN (07:38)
[2024-10-25] MEDS ORDERED: Non-Formulary Item 1 EACH (Midodrine Hcl [Midodrine Hcl] 10 MG Tablet) PO PRN (07:44)
[2024-10-25] MEDS ORDERED: Midodrine HCl 5 MG TAB PO PRN (08:03)
[2024-10-25] MEDS ORDERED: Oseltamivir 75 MG CAP ONE (08:28)
[2024-10-25] MEDS ORDERED: Aspirin Chewable 81 MG TAB ONE (08:28)
[2024-10-25] MEDS ORDERED: Gabapentin 100 MG CAP PO SCH (09:00)
[2024-10-25] MEDS ORDERED: clonazePAM 0.5 MG TAB PO SCH (09:00)
[2024-10-25] MEDS ORDERED: Divalproex Sodium DR 500 MG TAB PO SCH (09:00)
[2024-10-25] MEDS ORDERED: Non-Formulary Item 1 EACH (Benztropine Mesylate [Benztropine Mesylate] 0.5 MG Tablet) PO SCH (09:00)
[2024-10-25] MEDS ORDERED: Oseltamivir 75 MG CAP PO SCH (09:00)
[2024-10-25] MEDS ORDERED: Non-Formulary Item 1 EACH (Cholecalciferol (Vitamin D3) [Vitamin D3] 50 MCG Capsule) PO SCH (09:00)
[2024-10-25] MEDS ORDERED: Non-Formulary Item 1 EACH (Atorvastatin Calcium [Atorvastatin Calcium] 80 MG Tablet) PO SCH (09:00)
[2024-10-25 09:20] LABS: Troponin I 0.341 ng/mL (< 0.028)
[2024-10-25] MEDS: Oseltamivir 6 MG/ML ORAL SUSP PO SCH ×2 (11:00→20:13)
[2024-10-25] MEDS: clonazePAM 0.5 MG TAB PO SCH (11:01)
[2024-10-25] MEDS: Aspirin 81 mg Enteric Coated Tablet PO SCH (11:01)
[2024-10-25] MEDS: Gabapentin 300 MG CAP PO SCH (11:02)
[2024-10-25] MEDS: Divalproex Sodium 125 mg Sprinkle Capsule PO SCH (11:02)
[2024-10-25 12:11] LABS: Critical Call Chem Troponin I RESULT DECREASING; Troponin I 0.311 ng/mL (< 0.028)
[2024-10-25] MEDS: Vancomycin (BATCH) 1.25 GM in Premix 1 BAG IVPB SCH (13:00)
[2024-10-25] MEDS: Benztropine 1 MG TAB PO SCH (13:02)
[2024-10-25] MEDS: Atorvastatin Calcium 40 MG TAB PO SCH (13:02)
[2024-10-25] MEDS: Famotidine 20 MG TAB PO SCH (13:02)
[2024-10-25] MEDS: Escitalopram Oxalate 20 mg Tablet PO SCH (13:03)
[2024-10-25] MEDS: Cholecalciferol 1,000 UNITS (25 MCG) TAB PO SCH (13:03)
[2024-10-25 13:16] VITALS: BMI 21.8
[2024-10-25] MEDS: Heparin 5,000 UNITS/ML VIAL SC SCH (15:03)
[2024-10-25] MEDS: Folic Acid/Vit B Comp W-C PO SCH (15:03)
[2024-10-25] MEDS: EPOETIN ALFA-EPBX (ESRD) 10,000 UNITS/ML VIAL SC SCH (17:54)
[2024-10-25] MEDS: Ipratropium/Albuterol 3 ML NEB NEB PRN (20:02)
[2024-10-25] MEDS: Melatonin 3 MG TAB PO PRN (20:03)
[2024-10-25] MEDS: Aripiprazole 15 MG TAB PO SCH (20:03)
[2024-10-25] MEDS ORDERED: CLOZAPINE 100 MG PO SCH (21:00)
[2024-10-25] MEDS ORDERED: Non-Formulary Item 1 EACH (Aripiprazole [Abilify] 30 MG Tablet) PO SCH (21:00)
[2024-10-25] MEDS ORDERED: Non-Formulary Item 1 EACH (Melatonin [Melatonin] 5 MG Tablet) PO SCH (21:00)
[2024-10-26 07:53] LABS: HBSAB Concentration Less than 8.00 mIU/mL; HBsAg Index 0.34 S/CO (0-0.99); Hep B Core Total Ab NONREACTIVE (NonReactive); Hep B Core Total Index 0.14 S/CO (0-0.79); Hep B Surf AB NONREACTIVE (NonReactive); Hep B Surf Ag NONREACTIVE S/CO (NonReactive); Hep C IgG Ab Reflex HepC Qnt S/CO (NonReactive); Hep C Index 1.56 S/CO (0-0.79)
[2024-10-26] MEDS: Famotidine 20 MG TAB PO SCH (09:14)
[2024-10-26 09:18] LABS: Anion Gap 22 mmol/L (10-20); BUN (Urea Nitrogen) 103 mg/dL (8.4-25.7); Calc. Creatinine Clearance 6 mL/min (70-130); Calcium 7.9 mg/dL (7.8-10.44); Carbon Dioxide 18 mmol/L (23-31); Chloride 102 mmol/L (98-107); Estimated GFR 4; Glucose 74 mg/dL (80-115); Potassium 5.1 mmol/L (3.5-5.1); Sodium 137 mmol/L (136-145)
[2024-10-26 09:28] LABS: Hematocrit 30.7 % (42.0-52.0); Mean Corpuscular HGB CONC 32.6 g/dL (32.0-36.0); Mean Corpuscular Hemoglobin 31.9 pg (27.0-31.0); Mean Corpuscular Volume 98.1 fL (78.0-98.0); Mean Platelet Volume 9.9 fL (7.4-10.4); Platelet Count 121 10x3/uL (130-400); RBC Distribution Width 15.9 % (11.5-14.5); Red Blood Cell (RBC) Count 3.13 mill/uL (4.70-6.10)
[2024-10-26 09:33] LABS: Troponin I 0.227 ng/mL (< 0.028)
[2024-10-26] MEDS ORDERED: traMADol HCl 50 MG TAB PO PRN (12:50)
[2024-10-26] MEDS: Folic Acid/Vit B Comp W-C PO SCH (16:20)
[2024-10-26] MEDS: Mometasone 200 MCG/Formoterol 5 MCG 120 PUFF INHALER INH SCH (18:52)
[2024-10-26] MEDS: CLOZAPINE 100 MG PO SCH (23:15)
[2024-10-27 06:09] LABS: Hematocrit 29.4 % (42.0-52.0); Hemoglobin 9.7 g/dL (14.0-18.0); Mean Corpuscular Hemoglobin 31.6 pg (27.0-31.0); Mean Corpuscular Volume 95.8 fL (78.0-98.0); Mean Platelet Volume 10.3 fL (7.4-10.4); Platelet Count 124 10x3/uL (130-400); RBC Distribution Width 15.8 % (11.5-14.5); Red Blood Cell (RBC) Count 3.07 mill/uL (4.70-6.10)
[2024-10-27 06:12] LABS: Anion Gap 18 mmol/L (10-20); BUN (Urea Nitrogen) 62 mg/dL (8.4-25.7); Calc. Creatinine Clearance 9 mL/min (70-130); Calcium 7.8 mg/dL (7.8-10.44); Carbon Dioxide 23 mmol/L (23-31); Chloride 101 mmol/L (98-107); Estimated GFR 6; Glucose 70 mg/dL (80-115); Potassium 4.3 mmol/L (3.5-5.1); Sodium 138 mmol/L (136-145)
[2024-10-27 12:19] VITALS: BP 130/71; TEMP 96.8
[2024-10-27] MEDS ORDERED: Oseltamivir 6 MG/ML ORAL SUSP PO SCH (15:00)
[2024-10-27] MEDS ORDERED: CLOZAPINE 100 MG PO SCH (21:00)
== END 2024-10-27 15:29 | DRG 871 ==
LOC: ERS 05:25 → 2NO 09:53 → OBSVTOIN 10-26 09:50
PROVIDERS: ADMIT Internal Medicine; ATTEND Internal Medicine
DX: A41.89 Other specified sepsis (principal); G93.41 Metabolic encephalopathy; J96.01 Acute respiratory failure with hypoxia; N18.6 End stage renal disease; I21.A1 Myocardial infarction type 2; I12.0 Hypertensive chronic kidney disease with stage 5 chronic kidney disease or end stage renal disease; I69.353 Hemiplegia and hemiparesis following cerebral infarction affecting right non-dominant side; F25.9 Schizoaffective disorder, unspecified; I71.40 Abdominal aortic aneurysm, without rupture, unspecified; J44.9 Chronic obstructive pulmonary disease, unspecified; G20.A1 Parkinson's disease without dyskinesia, without mention of fluctuations; J10.1 Influenza due to other identified influenza virus with other respiratory manifestations; D63.1 Anemia in chronic kidney disease; F03.90 Unspecified dementia, unspecified severity, without behavioral disturbance, psychotic disturbance, mood disturbance, and anxiety; K21.9 Gastro-esophageal reflux disease without esophagitis; G47.00 Insomnia, unspecified; Z99.2 Dependence on renal dialysis; Z88.8 Allergy status to other drugs, medicaments and biological substances
CPT/HCPCS: 36415; 51701; 70450; 71045; 80048; 80053; 80306; 80307; 81001; 82805; 83605; 83735; 83880; 84484; 85025; 85027; 86704; 86706; 86803; 87040; 87086; 87340; 87428; 90935; 93005; 94640; 94664; 96361; 96365; 96372; 96375; G0257; G0378; J0692; J1644; J3370; J7620; Q5105

== ENCOUNTER 2024-10-30 05:16 | Emergency (ER) | payer MEDICARE, OTHER ==
[2024-10-30 06:13] LABS: #Basophils 0.03 10x3/uL (0.0-0.2); %Basophils 0.5 % (0.0-1.0); %Eosinophils 7.5 % (0.0-10.0); %Lymphocytes 12.1 % (21.0-51.0); %Monocytes 12.8 % (0.0-10.0); %Neutrophils 65.8 % (42.0-75.0); Hematocrit 31.3 % (42.0-52.0); Hemoglobin 10.4 g/dL (14.0-18.0); Mean Corpuscular HGB CONC 33.2 g/dL (32.0-36.0); Mean Corpuscular Hemoglobin 31.8 pg (27.0-31.0); Mean Corpuscular Volume 95.7 fL (78.0-98.0); Mean Platelet Volume 9.4 fL (7.4-10.4); Platelet Count 170 10x3/uL (130-400); Red Blood Cell (RBC) Count 3.27 mill/uL (4.70-6.10)
[2024-10-30 06:20] LABS: ALT (SGPT) 61 U/L (8-55); AST (SGOT) 73 U/L (5-34); Alkaline Phosphatase 107 U/L (40-110); Anion Gap 19 mmol/L (10-20); BUN (Urea Nitrogen) 58 mg/dL (8.4-25.7); Bilirubin, Total 0.5 mg/dL (0.2-1.2); Calc. Creatinine Clearance 0 mL/min (70-130); Calcium 8.6 mg/dL (7.8-10.44); Carbon Dioxide 24 mmol/L (23-31); Chloride 105 mmol/L (98-107); Estimated GFR 5; Globulin 4.1 g/dL (2.4-3.5); Glucose 145 mg/dL (80-115); Protein, Total 7.1 g/dL (5.8-8.1); Sodium 144 mmol/L (136-145)
[2024-10-30 06:25] LABS: Troponin I 0.079 ng/mL (< 0.028)
== END 2024-10-30 09:28 | disposition home or self-care (01) ==
LOC: ERS 05:16
DX: J44.1 Chronic obstructive pulmonary disease with (acute) exacerbation (principal); R53.1 Weakness; I12.0 Hypertensive chronic kidney disease with stage 5 chronic kidney disease or end stage renal disease; N18.6 End stage renal disease; E78.5 Hyperlipidemia, unspecified; Z55.6 Problems related to health literacy; Z87.891 Personal history of nicotine dependence; Z99.2 Dependence on renal dialysis
CPT/HCPCS: 71045; 80053; 83880; 84484; 85025; 93005

== ENCOUNTER 2025-08-13 22:57 | Inpatient (IN) | payer MEDICARE, MEDICAID ==
[~2025-08-13 22:57] MED LIST changes: -Iopamidol-370 76% 500 ML 1 ML ONE; +Iopamidol-370 76% 500 ML MDV (1 ML CHARGE) ONE
[2025-08-13 23:49] LABS: #Basophils 0.10 10x3/uL (0.0-0.2); #Eosinophils 0.04 10x3/uL (0.0-0.7); #Monocytes 1.65 10x3/uL (0.11-0.59); #Neutrophils 18.57 10x3/uL (1.40-6.50); %Basophils 0.5 % (0.0-1.0); %Eosinophils 0.2 % (0.0-10.0); %Lymphocytes 2.5 % (21.0-51.0); %Monocytes 7.8 % (0.0-10.0); %Neutrophils 88.1 % (42.0-75.0); Hematocrit 27.4 % (42.0-52.0); Hemoglobin 8.4 g/dL (14.0-18.0); Mean Corpuscular Hemoglobin 30.4 pg (27.0-31.0); Mean Corpuscular Volume 99.3 fL (78.0-98.0); Platelet Count 119 10x3/uL (130-400); Red Blood Cell (RBC) Count 2.76 mill/uL (4.70-6.10); White Blood Cell (WBC) Count 21.07 10x3/uL (4.8-10.8)
[2025-08-14] MEDS ORDERED: Cefepime 2 GM VIAL ONE
[2025-08-14 00:16] LABS: ALT (SGPT) 13 U/L (Less than 45); AST (SGOT) 41 U/L (11-34); Albumin 3.1 g/dL (3.1-4.5); Alkaline Phosphatase 102 U/L (40-110); Anion Gap 17 mmol/L (10-20); BUN (Urea Nitrogen) 53 mg/dL (8.4-25.7); Bilirubin, Total 0.4 mg/dL (0.3-1.2); Calc. Creatinine Clearance 0 mL/min (70-130); Calcium 9.1 mg/dL (7.8-10.44); Carbon Dioxide 28 mmol/L (23-31); Chloride 98 mmol/L (98-107); Globulin 3.5 g/dL (2.4-3.5); Glucose 84 mg/dL (80-115); Lipase 26 U/L (8-78); Magnesium 2.2 mg/dL (1.6-2.6); Potassium 5.5 mmol/L (3.5-5.1); Sodium 137 mmol/L (136-145)
[2025-08-14] MEDS ORDERED: Vancomycin 1 GM/200 ML (FROZEN) BAG ONE (00:27)
[2025-08-14] MEDS ORDERED: Calcium Chloride 1 GM/10 ML Abboject SYRINGE ONE (01:04)
[2025-08-14] MEDS ORDERED: CALCIUM GLUC 1 GM/NS 50 ML IV Bag ONE (01:05)
[2025-08-14] MEDS ORDERED: Norepinephrine 8 MG/0.9% NS 0 ML ONE (02:16)
[2025-08-14] MEDS ORDERED: Ondansetron PF 4 MG/2 ML Vial IVP PRN (04:57)
[2025-08-14 07:32] LABS: HBSAB Concentration Less than 8.00 mIU/mL; Hep B Core Total Ab NONREACTIVE (NonReactive); Hep B Core Total Index 0.09 S/CO (0-0.79); Hep B Surf Ag NONREACTIVE S/CO (NonReactive); Hep C IgG Ab Reflex HepC Qnt S/CO (NonReactive); Hep C Index 2.01 S/CO (0-0.79)
[2025-08-14] MEDS ORDERED: Vancomycin Diaylsis Sliding Scale (Wt 71-99) FS SCH (10:00)
[2025-08-14 10:29] LABS: Vancomycin, Random 16.9 ug/mL (See Comment)
[2025-08-14] MEDS ORDERED: PNEUMOC 20-VAL CONJ-DIP CRM/PF 0.5 ML SYRINGE IM ONE (10:30)
[2025-08-14] MEDS ORDERED: FLU (Fluad Triv) 25-26 (65UP)PF 45 MCG/0.5 ML Syringe IM ONE (10:30)
[2025-08-14] MEDS: EPOETIN ALFA-EPBX (ESRD) 10,000 UNITS/ML VIAL IVP SCH (18:06)
[2025-08-14] MEDS: Mupirocin 1 GM TUBE NASAL DECOLONIZATION NASAL SCH (20:15)
[2025-08-14] MEDS: clonazePAM 0.5 MG TAB PO SCH (21:11)
[2025-08-14] MEDS: Divalproex Sodium 125 mg Sprinkle Capsule PO SCH (21:13)
[2025-08-14] MEDS: Divalproex Sodium DR 500 MG TAB PO SCH (22:29)
[2025-08-15 04:29] LABS: #Basophils 0.11 10x3/uL (0.0-0.2); #Eosinophils 0.25 10x3/uL (0.0-0.7); #Monocytes 1.54 10x3/uL (0.11-0.59); #Neutrophils 16.20 10x3/uL (1.40-6.50); %Basophils 0.6 % (0.0-1.0); %Eosinophils 1.3 % (0.0-10.0); %Lymphocytes 3.2 % (21.0-51.0); %Monocytes 8.2 % (0.0-10.0); %Neutrophils 86.2 % (42.0-75.0); Hematocrit 25.7 % (42.0-52.0); Hemoglobin 8.0 g/dL (14.0-18.0); Mean Corpuscular Hemoglobin 30.3 pg (27.0-31.0); Mean Corpuscular Volume 97.3 fL (78.0-98.0); Platelet Count 126 10x3/uL (130-400); Red Blood Cell (RBC) Count 2.64 mill/uL (4.70-6.10); White Blood Cell (WBC) Count 18.80 10x3/uL (4.8-10.8)
[2025-08-15 04:46] LABS: Anion Gap 18 mmol/L (10-20); BUN (Urea Nitrogen) 36 mg/dL (8.4-25.7); Calc. Creatinine Clearance 0 mL/min (70-130); Calcium 8.8 mg/dL (7.8-10.44); Carbon Dioxide 28 mmol/L (23-31); Chloride 100 mmol/L (98-107); Glucose 64 mg/dL (80-115); Potassium 4.1 mmol/L (3.5-5.1); Sodium 142 mmol/L (136-145)
[2025-08-15 07:47] LABS: Vancomycin, Trough 18.3 ug/mL
[2025-08-15 08:24] VITALS: BMI 20.9
[2025-08-15] MEDS: EPOETIN ALFA-EPBX (ESRD) 10,000 UNITS/ML VIAL IVP SCH (10:57)
[2025-08-15] MEDS: Heparin 10,000 UNITS/ 10 ML VIAL CATH PRN (13:50)
[2025-08-15 13:58] VITALS: BMI 20.9
[2025-08-15] MEDS: Benztropine 1 MG TAB PO SCH (17:05)
[2025-08-15] MEDS: Mometasone 100 MCG/Formoterol 5 MCG 120 PUFF INHALER INH SCH (18:14)
[2025-08-15] MEDS: CLOZAPINE 100 MG PO SCH (21:22)
[2025-08-16 07:40] LABS: #Basophils 0.09 10x3/uL (0.0-0.2); #Eosinophils 0.50 10x3/uL (0.0-0.7); #Monocytes 1.33 10x3/uL (0.11-0.59); #Neutrophils 11.21 10x3/uL (1.40-6.50); %Basophils 0.6 % (0.0-1.0); %Eosinophils 3.6 % (0.0-10.0); %Lymphocytes 4.9 % (21.0-51.0); %Monocytes 9.6 % (0.0-10.0); %Neutrophils 80.9 % (42.0-75.0); Hematocrit 27.0 % (42.0-52.0); Hemoglobin 8.3 g/dL (14.0-18.0); Mean Corpuscular Hemoglobin 30.2 pg (27.0-31.0); Mean Corpuscular Volume 98.2 fL (78.0-98.0); Platelet Count 151 10x3/uL (130-400); Red Blood Cell (RBC) Count 2.75 mill/uL (4.70-6.10); White Blood Cell (WBC) Count 13.86 10x3/uL (4.8-10.8)
[2025-08-16 07:54] LABS: Anion Gap 15 mmol/L (10-20); BUN (Urea Nitrogen) 26 mg/dL (8.4-25.7); Calc. Creatinine Clearance 13 mL/min (70-130); Calcium 8.9 mg/dL (7.8-10.44); Carbon Dioxide 29 mmol/L (23-31); Chloride 101 mmol/L (98-107); Glucose 67 mg/dL (80-115); Potassium 3.9 mmol/L (3.5-5.1); Sodium 141 mmol/L (136-145)
[2025-08-16] MEDS: Aspirin 81 mg Enteric Coated Tablet PO SCH (10:35)
[2025-08-16] MEDS: Gabapentin 300 MG CAP PO SCH (10:35)
[2025-08-16 15:15] LABS: Hep C PCR-Quant HCV Not Detected IU/mL (.)
[2025-08-16] MEDS: Calcium Carbonate 500 MG ChewTAB PO SCH (17:37)
[2025-08-17] MEDS: Acetaminophen 325 MG TAB PO PRN (00:13)
[2025-08-17 05:01] LABS: #Basophils 0.08 10x3/uL (0.0-0.2); #Eosinophils 0.64 10x3/uL (0.0-0.7); #Monocytes 1.11 10x3/uL (0.11-0.59); #Neutrophils 7.59 10x3/uL (1.40-6.50); %Basophils 0.8 % (0.0-1.0); %Eosinophils 6.2 % (0.0-10.0); %Lymphocytes 8.5 % (21.0-51.0); %Monocytes 10.7 % (0.0-10.0); %Neutrophils 73.4 % (42.0-75.0); Hematocrit 29.1 % (42.0-52.0); Hemoglobin 8.9 g/dL (14.0-18.0); Mean Corpuscular Hemoglobin 29.6 pg (27.0-31.0); Mean Corpuscular Volume 96.7 fL (78.0-98.0); Platelet Count 161 10x3/uL (130-400); Red Blood Cell (RBC) Count 3.01 mill/uL (4.70-6.10); White Blood Cell (WBC) Count 10.34 10x3/uL (4.8-10.8)
[2025-08-17 05:22] LABS: Anion Gap 17 mmol/L (10-20); BUN (Urea Nitrogen) 38 mg/dL (8.4-25.7); Calc. Creatinine Clearance 9 mL/min (70-130); Calcium 9.3 mg/dL (7.8-10.44); Carbon Dioxide 29 mmol/L (23-31); Chloride 102 mmol/L (98-107); Glucose 80 mg/dL (80-115); Potassium 4.2 mmol/L (3.5-5.1); Sodium 144 mmol/L (136-145)
[2025-08-17 08:24] LABS: Vancomycin, Trough 17.7 ug/mL
[2025-08-17 13:14] VITALS: BP 158/65; TEMP 98.1
== END 2025-08-17 15:40 | DRG 871 ==
LOC: ERS 22:57 → ERHOLD 08-14 03:03 → PCU 08-14 09:26
PROVIDERS: ADMIT Internal Medicine; ATTEND Internal Medicine
PROC: 3E03329 Introduction of Other Anti-infective into Peripheral Vein, Percutaneous Approach (ICD-10-PCS; principal; 2025-08-14)
PROC: 3E0234Z Introduction of Serum, Toxoid and Vaccine into Muscle, Percutaneous Approach (ICD-10-PCS; 2025-08-14)
PROC: 3E02340 Introduction of Influenza Vaccine into Muscle, Percutaneous Approach (ICD-10-PCS; 2025-08-14)
DX: A41.9 Sepsis, unspecified organism (principal); G93.41 Metabolic encephalopathy; J18.9 Pneumonia, unspecified organism; J96.01 Acute respiratory failure with hypoxia; N18.6 End stage renal disease; I12.0 Hypertensive chronic kidney disease with stage 5 chronic kidney disease or end stage renal disease; Z88.8 Allergy status to other drugs, medicaments and biological substances; Z91.018 Allergy to other foods; F25.9 Schizoaffective disorder, unspecified; Z79.899 Other long term (current) drug therapy; J44.9 Chronic obstructive pulmonary disease, unspecified; E78.5 Hyperlipidemia, unspecified; Z98.890 Other specified postprocedural states; E87.5 Hyperkalemia; I95.9 Hypotension, unspecified; I71.43 Infrarenal abdominal aortic aneurysm, without rupture; I71.40 Abdominal aortic aneurysm, without rupture, unspecified; Z86.73 Personal history of transient ischemic attack (TIA), and cerebral infarction without residual deficits; T14.8XXA Other injury of unspecified body region, initial encounter; D64.9 Anemia, unspecified; E87.70 Fluid overload, unspecified
CPT/HCPCS: 36415; 36416; 70450; 71045; 71275; 74177; 74230; 80048; 80053; 80202; 83690; 83735; 84484; 85025; 86704; 86706; 86803; 87040; 87081; 87340; 87428; 87522; 90935; 93005; 94640; 96361; 96365; 96366; 96368; 96375; 97139; G0257; J0613; J0692; J1644; J3373; J7626; Q5105; Q9967

== ENCOUNTER 2025-09-12 14:32 | Inpatient (IN) | payer MEDICARE, MEDICAID ==
[2025-09-12 16:05] VITALS: BMI 21.7
[2025-09-12] MEDS ORDERED: Calcium Carbonate 500 MG ChewTAB PO PRN (17:20)
[2025-09-12] MEDS ORDERED: Melatonin 3 MG TAB PO PRN (17:20)
[2025-09-12] MEDS ORDERED: Electrolyte Replacement Protocol 1 EACH FS SCH (17:30)
[2025-09-12] MEDS ORDERED: Pharmacy to Dose: VANCOMYCIN IVPB PRN (18:40)
[2025-09-12] MEDS: CLOZAPINE 100 MG TAB PO SCH (20:28)
[2025-09-12] MEDS: Heparin 5,000 UNITS/ML VIAL SC SCH (20:29)
[2025-09-12] MEDS ORDERED: CLOZAPINE 100 MG PO SCH (21:00)
[2025-09-13] MEDS: clonazePAM 0.5 MG TAB PO SCH (00:41)
[2025-09-13 06:00] LABS: #Basophils 0.03 10x3/uL (0.0-0.2); #Eosinophils Less than 0.03 10x3/uL (0.0-0.7); #Monocytes 1.13 10x3/uL (0.11-0.59); #Neutrophils 20.15 10x3/uL (1.40-6.50); %Basophils 0.1 % (0.0-1.0); %Eosinophils 0.0 % (0.0-10.0); %Lymphocytes 2.1 % (21.0-51.0); %Monocytes 5.2 % (0.0-10.0); %Neutrophils 91.9 % (42.0-75.0); Hematocrit 31.2 % (42.0-52.0); Hemoglobin 9.7 g/dL (14.0-18.0); Mean Corpuscular Hemoglobin 28.9 pg (27.0-31.0); Mean Corpuscular Volume 92.9 fL (78.0-98.0); Platelet Count 218 10x3/uL (130-400); Red Blood Cell (RBC) Count 3.36 mill/uL (4.70-6.10); White Blood Cell (WBC) Count 21.93 10x3/uL (4.8-10.8)
[2025-09-13 06:17] LABS: Anion Gap 15 mmol/L (10-20); BUN (Urea Nitrogen) 24 mg/dL (8.4-25.7); Calc. Creatinine Clearance 13 mL/min (70-130); Calcium 9.0 mg/dL (7.8-10.44); Carbon Dioxide 26 mmol/L (23-31); Chloride 103 mmol/L (98-107); Glucose 133 mg/dL (80-115); Potassium 4.6 mmol/L (3.5-5.1); Sodium 139 mmol/L (136-145)
[2025-09-13] MEDS: Acetaminophen 325 MG TAB PO PRN (06:42)
[2025-09-13] MEDS ORDERED: Vancomycin Diaylsis Sliding Scale (Wt 71-99) FS SCH (09:00)
[2025-09-13] MEDS ORDERED: Enoxaparin 40 MG (0.4 mL) SYRINGE SC SCH (09:00)
[2025-09-13 17:17] LABS: CAUTI Indications for Culture Dysuria,urgency,freq; Glucose, Urine (Dipstick) Normal (Negative); Leukocyte 500 Leu/uL (Negative); Protein, Urine (Dipstick) 200 mg/dL (Neg-Trace); Specific Gravity, Urine 1.017 (1.002-1.036); WBC/HPF Greater than 50 HPF (0-3)
[2025-09-13 17:21] LABS: Bacteria/HPF 1+ HPF (None Seen)
[2025-09-13 17:23] LABS: Urine Culture Reflex Yes Yes
[2025-09-14 07:41] LABS: #Basophils 0.05 10x3/uL (0.0-0.2); #Eosinophils 0.47 10x3/uL (0.0-0.7); #Monocytes 1.01 10x3/uL (0.11-0.59); #Neutrophils 10.52 10x3/uL (1.40-6.50); %Basophils 0.4 % (0.0-1.0); %Eosinophils 3.6 % (0.0-10.0); %Lymphocytes 6.8 % (21.0-51.0); %Monocytes 7.8 % (0.0-10.0); %Neutrophils 80.9 % (42.0-75.0); Hematocrit 29.9 % (42.0-52.0); Hemoglobin 9.2 g/dL (14.0-18.0); Mean Corpuscular Hemoglobin 28.2 pg (27.0-31.0); Mean Corpuscular Volume 91.7 fL (78.0-98.0); Platelet Count 256 10x3/uL (130-400); Red Blood Cell (RBC) Count 3.26 mill/uL (4.70-6.10); White Blood Cell (WBC) Count 13.01 10x3/uL (4.8-10.8)
[2025-09-14] MEDS: clonazePAM 0.5 MG TAB PO SCH (08:08)
[2025-09-14 08:16] LABS: Vancomycin, Trough 14.4 ug/mL
[2025-09-14 08:19] LABS: ALT (SGPT) 10 U/L (Less than 45); AST (SGOT) 24 U/L (11-34); Albumin 2.5 g/dL (3.1-4.5); Alkaline Phosphatase 96 U/L (40-110); Anion Gap 14 mmol/L (10-20); BUN (Urea Nitrogen) 38 mg/dL (8.4-25.7); Bilirubin, Total 0.3 mg/dL (0.3-1.2); Calc. Creatinine Clearance 11 mL/min (70-130); Calcium 8.9 mg/dL (7.8-10.44); Carbon Dioxide 27 mmol/L (23-31); Chloride 101 mmol/L (98-107); Globulin 3.8 g/dL (2.4-3.5); Glucose 77 mg/dL (80-115); Potassium 5.1 mmol/L (3.5-5.1); Sodium 137 mmol/L (136-145)
[2025-09-14 08:40] LABS: HBSAB Concentration Less than 8.00 mIU/mL; Hep B Core Total Ab NONREACTIVE (NonReactive); Hep B Core Total Index 0.20 S/CO (0-0.79); Hep B Surf Ag NONREACTIVE S/CO (NonReactive); Hep C IgG Ab Reflex HepC Qnt S/CO (NonReactive); Hep C Index 1.78 S/CO (0-0.79)
[2025-09-14 09:55] VITALS: BP 169/83; TEMP 97.8
[2025-09-14] MEDS ORDERED: Vancomycin 1 GM Premix Bag IVPB SCH (17:00)
== END 2025-09-14 16:34 | DRG 177 ==
LOC: T4-A 15:23
PROVIDERS: ADMIT Internal Medicine; ATTEND Internal Medicine
PROC: 3E03329 Introduction of Other Anti-infective into Peripheral Vein, Percutaneous Approach (ICD-10-PCS; 2025-09-12)
PROC: 5A1D70Z Performance of Urinary Filtration, Intermittent, Less than 6 Hours Per Day (ICD-10-PCS; principal; 2025-09-14)
DX: J69.0 Pneumonitis due to inhalation of food and vomit (principal); J96.01 Acute respiratory failure with hypoxia; N18.6 End stage renal disease; J44.1 Chronic obstructive pulmonary disease with (acute) exacerbation; I13.2 Hypertensive heart and chronic kidney disease with heart failure and with stage 5 chronic kidney disease, or end stage renal disease; Z99.2 Dependence on renal dialysis; E78.5 Hyperlipidemia, unspecified; G20.A1 Parkinson's disease without dyskinesia, without mention of fluctuations; Z88.8 Allergy status to other drugs, medicaments and biological substances; Z86.73 Personal history of transient ischemic attack (TIA), and cerebral infarction without residual deficits; K21.9 Gastro-esophageal reflux disease without esophagitis; F31.9 Bipolar disorder, unspecified; F20.9 Schizophrenia, unspecified; Z87.891 Personal history of nicotine dependence; G47.00 Insomnia, unspecified; I71.40 Abdominal aortic aneurysm, without rupture, unspecified; D63.1 Anemia in chronic kidney disease; I50.9 Heart failure, unspecified; Z98.890 Other specified postprocedural states
CPT/HCPCS: 36415; 71045; 71275; 74174; 80048; 80053; 80202; 81001; 82805; 83605; 83880; 84145; 84443; 84484; 85025; 85610; 85730; 86704; 86706; 86803; 87040; 87077; 87081; 87086; 87186; 87340; 87428; 90935; 93005; 93306; 96365; 96375; G0257; J1644; J2543; J2919; J3373; Q9967